=== PATIENT | female | born 1940 | race Hispanic/Latino ===

== ENCOUNTER 2020-09-12 13:04 | Inpatient (IN) | payer MEDICARE ==
[2020-09-12] MEDS ORDERED: PANTOPRAZOLE 40 MG INJ IV ONE (13:56)
[2020-09-12] MEDS ORDERED: CEFEPIME/NS 1 GM/100 ML 1 GM/100 ML BAG IV ONE (13:56)
[2020-09-12] MEDS ORDERED: SODIUM CHLORIDE 0.9% 500 ML 500 ML IV ONE (14:18)
[2020-09-12] MEDS ORDERED: LIDOCAINE (1%) 10 MG/1 ML VIAL 20 ML MDV INFILTRATI ONE (14:27)
--- NOTE | 2020-09-12 14:46 | XRay Report ---
CHEST 1 VIEW 09/12/2020 2:20 PM INDICATION / CLINICAL INFORMATION: hypotension. COMPARISON: None available. FINDINGS: SUPPORT DEVICES: None. HEART / MEDIASTINUM: No significant abnormality. LUNGS / PLEURA: No significant pulmonary or pleural abnormality. No pneumothorax. ADDITIONAL FINDINGS: No significant additional findings. IMPRESSION: 1. No acute findings. Signer Name: Shayne Viramontes MD Signed: 09/12/2020 2:42 PM Workstation Name: [email or web address]
[2020-09-12 14:48] LABS: Hematocrit 24.8 % (30.3-42.9); Hemoglobin 8.6 gm/dl (10.1-14.3); Mean Corpuscular HGB Conc 35 % (30-34); Mean Corpuscular Volume 100 fl (79-97); Platelet Count 152 K/mm3 (140-440); Red Blood Count 2.48 M/mm3 (3.65-5.03); Red Cell Distribution Width 13.3 % (13.2-15.2)
[2020-09-12 14:56] LABS: INR 1.13 (0.87-1.13)
[2020-09-12 15:02] LABS: Creatine Kinase MB 1.4 ng/mL (0.0-4.0)
[2020-09-12 15:04] LABS: Albumin 2.8 g/dL (3.9-5); BUN/Creatinine Ratio 24; Blood Urea Nitrogen 24 mg/dL (7-17); Calcium 8.1 mg/dL (8.4-10.2); Hemolysis Index 3
--- NOTE | 2020-09-12 15:13 | Emergency Department Report ---
ED General Adult HPI - General Chief complaint: Fall Stated complaint: LT HIP/WEAKNESS Time Seen by Provider: 09/12/20 13:52 Source: patient, EMS Mode of arrival: Stretcher Limitations: Physical Limitation - History of Present Illness Initial comments: This is an 80-year-old female who I am told was seen at [place] emergency department yesterday and released. This is after a fall. There is some question as to whether the patient was evaluated for left hip pain. Upon my encounter, patient is unable to give any information beyond her name. She looks pale but her vital signs are otherwise stable. Patient was questionably toxic. Thereby, a code sepsis was called. Her mental status is obviously altered. A CT of the head was also -: unknown - Related Data Allergies Allergy/AdvReac Type Severity Reaction Status Date / Time No Known Allergies Allergy Unverified 09/12/20 13:50 ED Review of Systems ROS: Stated complaint: LT HIP/WEAKNESS Other details as noted in HPI Comment: Unobtainable due to pts medical conditions ED Past Medical Hx - Past Medical History Previous Medical History?: Yes Additional medical history: alzheimers - Social History Other Social History: Patient is coming from home. ED Physical Exam - General Limitations: Altered Mental Status, Physical Limitation General appearance: alert, in no apparent distress - Head Head exam: Present: atraumatic, normocephalic - Eye Eye exam: Present: normal appearance. Absent: scleral icterus - ENT ENT exam: Present: mucous membranes moist - Neck Neck exam: Present: normal inspection. Absent: tenderness, meningismus - Respiratory Respiratory exam: Present: normal lung sounds bilaterally. Absent: respiratory distress - Cardiovascular Cardiovascular Exam: Present: regular rate, normal rhythm. Absent: systolic murmur, diastolic murmur, rubs, gallop - GI/Abdominal GI/Abdominal exam: Present: soft, normal bowel sounds. Absent: distended, tenderness, guarding, rebound, rigid - Extremities Exam Extremities exam: Present: normal inspection - Back Exam Back exam: Present: normal inspection - Neurological Exam Neurological exam: Present: CN II-XII intact. Absent: motor sensory deficit - Psychiatric Psychiatric exam: Present: normal mood, flat affect - Skin Skin exam: Present: warm, dry, intact, normal color. Absent: rash ED Course - Reevaluation(s) Reevaluation #1: Discussed the patient's history with her daughter. She is on Namenda, Depakote and a medication for "paranoia" the daughter will call in these medicines to the nurse. The patient's last UTI was diagnosed in July. She is not been on antibiotics since. She has not been hospitalized recently. She has had a assisted living (memory center). She was seen at [place] emergency department last night. There was no report of anemia. There is no report of low sodium. However, the daughter stated that her primary care doctor found her sodium to be low x2 over the last approximately 1 month. It was "not low enough" for acute treatment. Patient is found to be hyponatremic with mental decline, i.e. acute encephalopathy on chronic dementia. She is not able to sit up in bed nor take care of herself obviously. She is found to have a UTI. She is substantially anemic which is macrocytic/hyperchromic. She will be admitted to the medical service for further work-up. A CT of the abdomen and pelvis has been ordered to further stratify her anemia, pelvic pain and UTI. 09/12/20 18:07 ED Medical Decision Making - Lab Data Result diagrams: 09/12/20 14:35 09/12/20 14:21 Laboratory Results - last 24 hr 09/12/20 09/12/20 09/12/20 14:21 14:21 14:21 WBC RBC Hgb Hct MCV MCH MCHC RDW Plt Count [place] % (Auto) Add Manual Diff Total Counted Seg Neuts % (Manual) Lymphocytes % (Manual) Monocytes % (Manual) Nucleated RBC % Seg Neutrophils # Man Band Neutrophils # Lymphocytes # (Manual) Abs React Lymphs (Man) Monocytes # (Manual) Eosinophils # (Manual) Basophils # (Manual) Metamyelocytes # Myelocytes # Promyelocytes # Blast Cells # WBC Morphology Hypersegmented Neuts Hyposegmented Neuts Hypogranular Neuts Smudge Cells Toxic Granulation Toxic Vacuolation Dohle Bodies Pelger-Huet Anomaly Tracey Rods Platelet Estimate Clumped Platelets Plt Clumps, EDTA Large Platelets Giant Platelets Platelet Satelliting Plt Morphology Comment RBC Morphology Dimorphic RBCs Polychromasia Hypochromasia Poikilocytosis Anisocytosis Microcytosis Macrocytosis Spherocytes Pappenheimer Bodies Sickle Cells Target Cells Tear Drop Cells Ovalocytes Helmet Cells Blair-[place]ad Bodies Calvin Rings Nelli Cells Bite Cells Crenated Cell Elliptocytes Acanthocytes (Spur) Rouleaux Hemoglobin C Crystals Schistocytes Malaria parasites Dmitri Bodies Hem Pathologist Commnt PT 14.3 INR 1.13 VBG pH 7.350 Sodium Potassium Chloride Carbon Dioxide Anion Gap BUN Creatinine Estimated GFR BUN/Creatinine Ratio Glucose Lactic Acid 1.90 Calcium Magnesium Total Bilirubin Direct Bilirubin Indirect Bilirubin AST ALT Alkaline Phosphatase Total Creatine Kinase CK-MB (CK-2) CK-MB (CK-2) Rel Index Troponin T NT-Pro-B Natriuret Pep Total Protein Albumin Albumin/Globulin Ratio Blood Type Antibody Screen 09/12/20 09/12/20 09/12/20 14:21 14:21 14:35 WBC 8.5 RBC 2.48 L Hgb 8.6 L Hct 24.8 L MCV 100 H MCH 35 H MCHC 35 H RDW 13.3 Plt Count 152 [place] % (Auto) Mixing And Molding Machine Operator Add Manual Diff Complete Total Counted 100 Seg Neuts % (Manual) 73.0 H Lymphocytes % (Manual) 16.0 Monocytes % (Manual) 11.0 H Nucleated RBC % Not Reportable Seg Neutrophils # Man 6.2 Band Neutrophils # 0.0 Lymphocytes # (Manual) 1.4 Abs React Lymphs (Man) 0.0 Monocytes # (Manual) 0.9 H Eosinophils # (Manual) 0.0 Basophils # (Manual) 0.0 Metamyelocytes # 0.0 Myelocytes # 0.0 Promyelocytes # 0.0 Blast Cells # 0.0 WBC Morphology Not Reportable Hypersegmented Neuts Not Reportable Hyposegmented Neuts Not Reportable Hypogranular Neuts Not Reportable Smudge Cells Not Reportable Toxic Granulation Not Reportable Toxic Vacuolation Not Reportable Dohle Bodies Not Reportable Pelger-Huet Anomaly Not Reportable Tracey Rods Not Reportable Platelet Estimate Consistent w auto Clumped Platelets Not Reportable Plt Clumps, EDTA Not Reportable Large Platelets Not Reportable Giant Platelets Not Reportable Platelet Satelliting Not Reportable Plt Morphology Comment Not Reportable RBC Morphology Normal Dimorphic RBCs Not Reportable Polychromasia Not Reportable Hypochromasia Not Reportable Poikilocytosis Not Reportable Anisocytosis Not Reportable Microcytosis Not Reportable Macrocytosis Not Reportable Spherocytes Not Reportable Pappenheimer Bodies Not Reportable Sickle Cells Not Reportable Target Cells Not Reportable Tear Drop Cells Not Reportable Ovalocytes Not Reportable Helmet Cells Not Reportable Blair-[place] Bodies Not Reportable Calvin Rings Not Reportable Logan Cells Not Reportable Bite Cells Not Reportable Crenated Cell Not Reportable Elliptocytes Not Reportable Acanthocytes (Spur) Not Reportable Rouleaux Not Reportable Hemoglobin C Crystals Not Reportable Schistocytes Not Reportable Malaria parasites Not Reportable Dmitri Bodies Not Reportable Hem Pathologist Commnt No PT INR VBG pH Sodium 129 L Potassium 4.1 Chloride 95.1 L Carbon Dioxide 28 Anion Gap 10 BUN 24 H Creatinine 1.0 Estimated GFR 53 BUN/Creatinine Ratio 24 Glucose 128 H Lactic Acid Calcium 8.1 L Magnesium 2.00 Total Bilirubin 0.20 Direct Bilirubin < 0.2 Indirect Bilirubin 0.0 AST 13 ALT < 5 L Alkaline Phosphatase 56 Total Creatine Kinase 22 L CK-MB (CK-2) 1.4 CK-MB (CK-2) Rel Index 6.3 H Troponin T < 0.010 NT-Pro-B Natriuret Pep 416.2 Total Protein 4.7 L Albumin 2.8 L Albumin/Globulin Ratio 1.5 Blood Type Antibody Screen 09/12/20 14:35 WBC RBC Hgb Hct MCV MCH MCHC RDW Plt Count [place] % (Auto) Add Manual Diff Total Counted Seg Neuts % (Manual) Lymphocytes % (Manual) Monocytes % (Manual) Nucleated RBC % Seg Neutrophils # Man Band Neutrophils # Lymphocytes # (Manual) Abs React Lymphs (Man) Monocytes # (Manual) Eosinophils # (Manual) Basophils # (Manual) Metamyelocytes # Myelocytes # Promyelocytes # Blast Cells # WBC Morphology Hypersegmented Neuts Hyposegmented Neuts Hypogranular Neuts Smudge Cells Toxic Granulation Toxic Vacuolation Dohle Bodies Pelger-Huet Anomaly Tracey Rods Platelet Estimate Clumped Platelets Plt Clumps, EDTA Large Platelets Giant Platelets Platelet Satelliting Plt Morphology Comment RBC Morphology Dimorphic RBCs Polychromasia Hypochromasia Poikilocytosis Anisocytosis Microcytosis Macrocytosis Spherocytes Pappenheimer Bodies Sickle Cells Target Cells Tear Drop Cells Ovalocytes Helmet Cells Blair-[place]ad Bodies Calvin Rings Nelli Cells Bite Cells Crenated Cell Elliptocytes Acanthocytes (Spur) Rouleaux Hemoglobin C Crystals Schistocytes Malaria parasites Dmitri Bodies Hem Pathologist Commnt PT INR VBG pH Sodium Potassium Chloride Carbon Dioxide Anion Gap BUN Creatinine Estimated GFR BUN/Creatinine Ratio Glucose Lactic Acid Calcium Magnesium Total Bilirubin Direct Bilirubin Indirect Bilirubin AST ALT Alkaline Phosphatase Total Creatine Kinase CK-MB (CK-2) CK-MB (CK-2) Rel Index Troponin T NT-Pro-B Natriuret Pep Total Protein Albumin Albumin/Globulin Ratio Blood Type O POSITIVE Antibody Screen Negative Critical care attestation.: If time is entered above; I have spent that time in minutes in the direct care of this critically ill patient, excluding procedure time. ED Disposition Clinical Impression: Hyponatremia, Acute encephalopathy, Volume depletion Anemia Qualifiers: Anemia type: unspecified type Qualified Code(s): D64.9 - Anemia, unspecified Disposition: 09 OP ADMIT IP TO THIS HOSP Is pt being admited?: Yes Does the pt Need Aspirin: Yes Condition: Stable Referrals: PRIMARY CARE, [Primary Care Provider] - 3-5 Days Time of Disposition: 18:11
[2020-09-12 15:18] LABS: Total Cells Counted 100
[2020-09-12 15:19] LABS: Platelet Estimate Consistent w Auto; RBC Morphology Normal
[2020-09-12 15:21] LABS: Alanine Aminotransferase < 5 units/L (7-56); Bilirubin,Direct < 0.2 mg/dL (0-0.2)
--- NOTE | 2020-09-12 15:26 | Cat Scan Report ---
CT head without contrast HISTORY: AMS. TECHNIQUE: Axial imaging performed from the skull apex through the skull base without the use of con trast. All CT scans at this location are performed using CT dose reduction for ALARA by means of aut omated exposure control. COMPARISON: None FINDINGS: Parenchyma: No acute intracranial hemorrhage or parenchymal abnormality. Ventricles: There is mild diffuse brain atrophy with commensurate ventricular enlargement which is l ikely age appropriate. Soft tissues: Soft tissues including the orbits appear normal. Bones: No acute osseous abnormality. Sinuses: Sinuses and mastoid air cells are clear. IMPRESSION: No acute abnormality. Signer Name: Eleuterio Haynes MD Signed: 09/12/2020 3:22 PM Workstation Name: [email or web address]
[2020-09-12] MEDS ORDERED: SODIUM CHLORIDE 0.9% 1000 ML 1,000 ML IV ONE (17:00)
[2020-09-12 17:21] LABS: Bilirubin,Urine NEG (Negative); Blood,Urine NEG (Negative); Color,Urine Amber (Yellow); Mucus,Urine 1+ /HPF; Urobilinogen,Urine < 2.0 mg/dL (<2.0)
[2020-09-12 17:47] LABS: Iron 24 ug/dL (37-170); Total Iron Binding Capacity 211 mcg/dL (250-450)
--- NOTE | 2020-09-12 18:01 | XRay Report ---
. PELVIS 1 VIEW(S) INDICATION / CLINICAL INFORMATION: hip pain COMPARISON: None available. FINDINGS: BONES / JOINT(S): No acute fracture or subluxation. 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 SOFT TISSUES: No significant abnormality. ADDITIONAL FINDINGS: None. Signer Name: Martin Reina MD Signed: 09/12/2020 5:57 PM Workstation Name: [id number]
[2020-09-12] MEDS ORDERED: ASPIRIN 81 MG TAB CHEW PO ONE (18:19)
--- NOTE | 2020-09-12 18:34 | Cat Scan Report ---
CT ABDOMEN AND PELVIS WITHOUT CONTRAST HISTORY: pelvic pain, anemia. COMPARISON: None. TECHNIQUE: CT images of the abdomen and pelvis were obtained without administration of intravenous co ntrast. All CT scans at this location are performed using CT dose reduction for ALARA by means of au tomated exposure control. FINDINGS: Lungs/bones: There is a small left-sided pleural effusion and minimal bibasilar compressive atelecta sis. Degenerative changes are present in the spine and pelvis with superior endplate wedge deformity at L1 with approximately 25% height loss. No acute fracture line identified and this is most likely c hronic abnormality. Abdomen/pelvis: The liver, gallbladder, spleen, pancreas, adrenals, right kidney, and proximal GI tr act appear unremarkable. There is nonobstructive nephrolithiasis in the left kidney with largest ston e measuring 2 mm in the lower pole. There is no ureteral stone or hydronephrosis. The bladder is mostly collapsed but there is suggestion of mild circumferential wall thickening and s urrounding stranding. No pelvic free fluid. Uterus is surgically absent. There is mild colonic divert iculosis with no acute inflammatory change identified. There is a rounded masslike structure superficial to the right hip which measures approximately 15 cm in length and 12 cm AP with mild subcutaneous stranding over the right flank. IMPRESSION: 1. Urinary bladder findings as outlined above could be seen with cystitis. Correlate with urinalysis findings. 2. Incidental large hematoma over the right hip may explain anemia. No underlying fracture. Signer Name: Eleuterio Haynes MD Signed: 09/12/2020 6:29 PM Workstation Name: [id number]
[2020-09-12] MEDS: HYDROmorphone 1 MG/1 ML INJ IV PRN (22:16)
--- NOTE | 2020-09-13 00:03 | History and Physical Report ---
History of Present Illness Date of examination: 09/12/20 Date of admission: 09/12/20 17:55 Chief complaint: Altered sensorium and severe weakness for 1 day History of present illness: 80-year-old with history of dementia brought in for fall and severe weakness. Patient was apparently evaluated emergency department at [facility] and was released yesterday. Patient was evaluated for left hip pain and fracture was ruled out. As per the daughter patient has a low sodium and hence brought her here for altered sensorium and possible hyponatremia. No fever or chills. No exposure to coronavirus. Patient lives in assisted living facility. - Past Medical History Previous Medical History?: Yes Additional medical history: alzheimers past surgical history n/a - Social History Other Social History: Patient is coming from home. --Family history Htm Review of Systems ROS: Stated complaint: LT HIP/WEAKNESS Other details as noted in HPI Comment: Unobtainable due to pts medical conditions Medications and Allergies Allergies Allergy/AdvReac Type Severity Reaction Status Date / Time No Known Allergies Allergy Verified 09/13/20 00:13 Active Meds: Active Medications Hydromorphone HCl (Hydromorphone 1 Mg/1 Ml Inj) 0.5 mg IV Q3H PRN PRN Reason: Pain , Severe (7-10) Last Admin: 09/12/20 22:16 Dose: 0.5 mg Documented by: Sodium Chloride (Nacl 0.9% 1000 Ml) 1,000 mls @ 125 mls/hr IV ONCE ONE Stop: 09/13/20 00:59 Last Admin: 09/12/20 17:28 Dose: 125 mls/hr Documented by: Exam - Constitutional Vitals: Temp Pulse Resp BP Pulse Ox 99.3 F 88 17 103/45 92 09/12/20 21:09 09/12/20 22:10 09/12/20 22:46 09/12/20 22:10 09/12/20 22:10 General appearance: Present: no acute distress, well-nourished - EENT Eyes: Present: PERRL ENT: hearing intact, clear oral mucosa - Neck Neck: Present: supple, normal ROM - Respiratory Respiratory effort: normal Respiratory: bilateral: CTA - Cardiovascular Heart rate: 78 Rhythm: regular Heart Sounds: Present: S1 & S2. Absent: rub, click - Extremities Extremities: no ischemia, pulses symmetrical, No edema Peripheral Pulses: within normal limits - Abdominal General gastrointestinal: Present: soft, non-tender, non-distended, normal bowel sounds Female genitourinary: Present: normal - Integumentary Integumentary: Present: clear, warm, dry - Musculoskeletal Musculoskeletal: gait normal, strength equal bilaterally - Psychiatric Psychiatric: other (Altered sensorium) - Neurologic Neurologic: CNII-XII intact, moves all extremities, other (Altered sensorium) - Allied Health Allied health notes reviewed: nursing, case management HEART Score - HEART Score Troponin: Troponin T < 0.010 ng/mL (0.00-0.029) 09/12/20 14:21 Results - Labs CBC & Chem 7: 09/12/20 14:35 09/12/20 14:21 Labs: Laboratory Last Values WBC 8.5 K/mm3 (4.5-11.0) 09/12/20 14:35 RBC 2.48 M/mm3 (3.65-5.03) L 09/12/20 14:35 Hgb 8.6 gm/dl (10.1-14.3) L 09/12/20 14:35 Hct 24.8 % (30.3-42.9) L 09/12/20 14:35 MCV 100 fl (79-97) H 09/12/20 14:35 MCH 35 pg (28-32) H 09/12/20 14:35 MCHC 35 % (30-34) H 09/12/20 14:35 RDW 13.3 % (13.2-15.2) 09/12/20 14:35 Plt Count 152 K/mm3 (140-440) 09/12/20 14:35 [place] % (Auto) Independent Jeweler 09/12/20 14:35 Add Manual Diff Complete 09/12/20 14:35 Total Counted 100 09/12/20 14:35 Seg Neuts % (Manual) 73.0 % (40.0-70.0) H 09/12/20 14:35 Lymphocytes % (Manual) 16.0 % (13.4-35.0) 09/12/20 14:35 Monocytes % (Manual) 11.0 % (0.0-7.3) H 09/12/20 14:35 Nucleated RBC % Not Reportable 09/12/20 14:35 Seg Neutrophils # Man 6.2 K/mm3 (1.8-7.7) 09/12/20 14:35 Band Neutrophils # 0.0 K/mm3 09/12/20 14:35 Lymphocytes # (Manual) 1.4 K/mm3 (1.2-5.4) 09/12/20 14:35 Abs React Lymphs (Man) 0.0 K/mm3 09/12/20 14:35 Monocytes # (Manual) 0.9 K/mm3 (0.0-0.8) H 09/12/20 14:35 Eosinophils # (Manual) 0.0 K/mm3 (0.0-0.4) 09/12/20 14:35 Basophils # (Manual) 0.0 K/mm3 (0.0-0.1) 09/12/20 14:35 Metamyelocytes # 0.0 K/mm3 09/12/20 14:35 Myelocytes # 0.0 K/mm3 09/12/20 14:35 Promyelocytes # 0.0 K/mm3 09/12/20 14:35 Blast Cells # 0.0 K/mm3 09/12/20 14:35 WBC Morphology Not Reportable 09/12/20 14:35 Hypersegmented Neuts Not Reportable 09/12/20 14:35 Hyposegmented Neuts Not Reportable 09/12/20 14:35 Hypogranular Neuts Not Reportable 09/12/20 14:35 Smudge Cells Not Reportable 09/12/20 14:35 Toxic Granulation Not Reportable 09/12/20 14:35 Toxic Vacuolation Not Reportable 09/12/20 14:35 Dohle Bodies Not Reportable 09/12/20 14:35 Pelger-Huet Anomaly Not Reportable 09/12/20 14:35 Tracey Rods Not Reportable 09/12/20 14:35 Platelet Estimate Consistent w auto 09/12/20 14:35 Clumped Platelets Not Reportable 09/12/20 14:35 Plt Clumps, EDTA Not Reportable 09/12/20 14:35 Large Platelets Not Reportable 09/12/20 14:35 Giant Platelets Not Reportable 09/12/20 14:35 Platelet Satelliting Not Reportable 09/12/20 14:35 Plt Morphology Comment Not Reportable 09/12/20 14:35 RBC Morphology Normal 09/12/20 14:35 Dimorphic RBCs Not Reportable 09/12/20 14:35 Polychromasia Not Reportable 09/12/20 14:35 Hypochromasia Not Reportable 09/12/20 14:35 Poikilocytosis Not Reportable 09/12/20 14:35 Anisocytosis Not Reportable 09/12/20 14:35 Microcytosis Not Reportable 09/12/20 14:35 Macrocytosis Not Reportable 09/12/20 14:35 Spherocytes Not Reportable 09/12/20 14:35 Pappenheimer Bodies Not Reportable 09/12/20 14:35 Sickle Cells Not Reportable 09/12/20 14:35 Target Cells Not Reportable 09/12/20 14:35 Tear Drop Cells Not Reportable 09/12/20 14:35 Ovalocytes Not Reportable 09/12/20 14:35 Helmet Cells Not Reportable 09/12/20 14:35 [place] Bodies Not Reportable 09/12/20 14:35 [place] Rings Not Reportable 09/12/20 14:35 [place] Cells Not Reportable 09/12/20 14:35 Bite Cells Not Reportable 09/12/20 14:35 Crenated Cell Not Reportable 09/12/20 14:35 Elliptocytes Not Reportable 09/12/20 14:35 Acanthocytes (Spur) Not Reportable 09/12/20 14:35 Rouleaux Not Reportable 09/12/20 14:35 Hemoglobin C Crystals Not Reportable 09/12/20 14:35 Schistocytes Not Reportable 09/12/20 14:35 Malaria parasites Not Reportable 09/12/20 14:35 Dmitri Bodies Not Reportable 09/12/20 14:35 Hem Pathologist Commnt No 09/12/20 14:35 PT 14.3 Sec. (12.2-14.9) 09/12/20 14:21 INR 1.13 (0.87-1.13) 09/12/20 14:21 VBG pH 7.350 (7.320-7.420) 09/12/20 14:21 Sodium 129 mmol/L (137-145) L 09/12/20 14:21 Potassium 4.1 mmol/L (3.6-5.0) 09/12/20 14:21 Chloride 95.1 mmol/L (98-107) L 09/12/20 14:21 Carbon Dioxide 28 mmol/L (22-30) 09/12/20 14:21 Anion Gap 10 mmol/L 09/12/20 14:21 BUN 24 mg/dL (7-17) H 09/12/20 14:21 Creatinine 1.0 mg/dL (0.6-1.2) 09/12/20 14:21 Estimated GFR 53 ml/min 09/12/20 14:21 BUN/Creatinine Ratio 24 % 09/12/20 14:21 Glucose 128 mg/dL (65-100) H 09/12/20 14:21 Lactic Acid 1.50 mmol/L (0.7-2.0) 09/12/20 17:08 Calcium 8.1 mg/dL (8.4-10.2) L 09/12/20 14:21 Magnesium 2.00 mg/dL (1.7-2.3) 09/12/20 14:21 Iron 24 ug/dL (37-170) L 09/12/20 17:08 TIBC 211 mcg/dL (250-450) L 09/12/20 17:08 Total Bilirubin 0.20 mg/dL (0.1-1.2) 09/12/20 14:21 Direct Bilirubin < 0.2 mg/dL (0-0.2) 09/12/20 14:21 Indirect Bilirubin 0.0 mg/dL 09/12/20 14:21 AST 13 units/L (5-40) 09/12/20 14:21 ALT < 5 units/L (7-56) L 09/12/20 14:21 Alkaline Phosphatase 56 units/L (35-129) 09/12/20 14:21 Total Creatine Kinase 22 units/L (30-135) L 09/12/20 14:21 CK-MB (CK-2) 1.4 ng/mL (0.0-4.0) 09/12/20 14:21 CK-MB (CK-2) Rel Index 6.3 (0-4) H 09/12/20 14:21 Troponin T < 0.010 ng/mL (0.00-0.029) 09/12/20 14:21 NT-Pro-B Natriuret Pep 416.2 pg/mL (0-900) 09/12/20 14:21 Total Protein 4.7 g/dL (6.3-8.2) L 09/12/20 14:21 Albumin 2.8 g/dL (3.9-5) L 09/12/20 14:21 Albumin/Globulin Ratio 1.5 % 09/12/20 14:21 Vitamin B12 593.2 pg/mL (211-911) 09/12/20 17:08 Folate 19.13 ng/mL (7.3-26.0) 09/12/20 17:08 Urine Color Vickie (Yellow) 09/12/20 16:46 Urine Turbidity Cloudy (Clear) 09/12/20 16:46 Urine pH 5.0 (5.0-7.0) 09/12/20 16:46 Ur Specific [place] 1.019 (1.003-1.030) 09/12/20 16:46 Urine Protein 30 mg/dl mg/dL (Negative) 09/12/20 16:46 Urine Glucose (UA) Neg mg/dL (Negative) 09/12/20 16:46 Urine Ketones Neg mg/dL (Negative) 09/12/20 16:46 Urine Blood Neg (Negative) 09/12/20 16:46 Urine Nitrite Neg (Negative) 09/12/20 16:46 Urine Bilirubin Neg (Negative) 09/12/20 16:46 Urine Urobilinogen < 2.0 mg/dL (<2.0) 09/12/20 16:46 Ur Leukocyte Esterase Mod (Negative) 09/12/20 16:46 Urine WBC (Auto) 90.0 /HPF (0.0-6.0) H 09/12/20 16:46 Urine RBC (Auto) 4.0 /HPF (0.0-6.0) 09/12/20 16:46 U Epithel Cells (Auto) < 1.0 /HPF (0-13.0) 09/12/20 16:46 Urine Mucus 1+ /HPF 09/12/20 16:46 Blood Type O POSITIVE 09/12/20 14:35 Antibody Screen Negative 09/12/20 14:35 Short CBC 09/12/20 Range/Units 14:35 WBC 8.5 (4.5-11.0) K/mm3 Hgb 8.6 L (10.1-14.3) gm/dl Hct 24.8 L (30.3-42.9) % Plt Count 152 (140-440) K/mm3 BMP 09/12/20 14:21 Sodium 129 L Potassium 4.1 Chloride 95.1 L Carbon Dioxide 28 BUN 24 H Creatinine 1.0 Glucose 128 H Calcium 8.1 L Cardiac Enzymes 09/12/20 Range/Units 14:21 Total Creatine Kinase 22 L (30-135) units/L CK-MB (CK-2) 1.4 (0.0-4.0) ng/mL Troponin T < 0.010 (0.00-0.029) ng/mL Liver Function 09/12/20 Range/Units 14:21 Total Bilirubin 0.20 (0.1-1.2) mg/dL Direct Bilirubin < 0.2 (0-0.2) mg/dL AST 13 (5-40) units/L ALT < 5 L (7-56) units/L Alkaline Phosphatase 56 (35-129) units/L Albumin 2.8 L (3.9-5) g/dL Urine 09/12/20 Range/Units 16:46 Urine Color Vickie (Yellow) Urine pH 5.0 (5.0-7.0) Ur Specific [place] 1.019 (1.003-1.030) Urine Protein 30 mg/dl (Negative) mg/dL Urine Glucose (UA) Neg (Negative) mg/dL Microbiology: Microbiology 09/12/20 14:21 Peripheral/Venous Blood Culture - Preliminary Culture in Progress 09/12/20 14:21 Peripheral/Venous Blood Culture - Preliminary Culture in Progress - Imaging and Cardiology Imaging and Cardiology: Head CT No acute abnormality Chest x-ray No acute findings Abdominal CAT scan Urinary bladder findings consistent with cystitis Incidental large hematoma over the right rib may explain anemia no underlying fracture Assessment and Plan Advance Directives: Yes (Full code) VTE prophylaxis?: Chemical Plan of care discussed with patient/family: Yes - Patient Problems (1) Acute encephalopathy Current Visit: Yes Status: Acute Plan to address problem: Multifactorial including low sodium urinary tract infection and underlying dementia (2) Hyponatremia Current Visit: Yes Status: Acute Plan to address problem: IV normal saline for now (3) Hematoma of right hip Current Visit: Yes Status: Acute Qualifiers: Encounter type: initial encounter Qualified Code(s): S70.01XA - Contusion of right hip, initial encounter Plan to address problem: Ortho consult requested (4) Anemia Current Visit: Yes Status: Acute Qualifiers: Anemia type: unspecified type Qualified Code(s): D64.9 - Anemia, un specified Plan to address problem: Anemia possibly secondary to hematoma and possible iron deficiency anemia Anemia work-up (5) Urinary tract infection Current Visit: Yes Status: Acute Qualifiers: Urinary tract infection type: acute cystitis Plan to address problem: Initiated on IV Rocephin (6) Malnutrition Current Visit: Yes Status: Chronic Qualifiers: Protein-calorie malnutrition severity: mild Plan to address problem: Initiated on dietary supplements (7) Hypocalcemia Current Visit: Yes Status: Acute Plan to address problem: On Caltrate (8) DVT prophylaxis Current Visit: Yes Status: Acute Plan to address problem: On heparin and GI prophylaxis
[2020-09-13] MEDS ORDERED: ONDANSETRON 4 MG/2 ML INJ IV PRN (00:05)
[2020-09-13] MEDS ORDERED: METOCLOPRAMIDE 10 MG/2 ML INJ IV PRN ×2 (00:05→00:17)
[2020-09-13] MEDS ORDERED: FAMOTIDINE 20 MG/2 ML INJ IV SCH (01:00)
[2020-09-13] MEDS: FAMOTIDINE 20 MG/2 ML INJ IV SCH ×3 (01:59→21:06)
[2020-09-13] MEDS: SODIUM CHLORIDE 0.9% 1000 ML 1,000 ML IV SCH ×2 (02:08→13:43)
[2020-09-13 07:50] LABS: Hematocrit 20.4 % (30.3-42.9); Hemoglobin 6.9 gm/dl (10.1-14.3); Mean Corpuscular HGB Conc 34 % (30-34); Mean Corpuscular Volume 101 fl (79-97); Platelet Count 119 K/mm3 (140-440); Red Blood Count 2.01 M/mm3 (3.65-5.03); Red Cell Distribution Width 13.4 % (13.2-15.2)
[2020-09-13 08:16] LABS: Albumin 2.3 g/dL (3.9-5); Blood Urea Nitrogen 19 mg/dL (7-17); Calcium 7.5 mg/dL (8.4-10.2); Hemolysis Index 18
[2020-09-13 08:21] LABS: Alanine Aminotransferase < 5 units/L (7-56); BUN/Creatinine Ratio 32
[2020-09-13 08:46] LABS: Band Neutrophils # (Manual) 0.1 K/mm3; Total Cells Counted 100
[2020-09-13 08:47] LABS: Platelet Estimate Consistent w Auto; RBC Morphology Normal
[2020-09-13] MEDS: CALCIUM CARB/VIT D3/MINERALS 600 MG/800 UNITS TAB PO SCH ×2 (09:34→21:06)
[2020-09-13] MEDS: cefTRIAXone/NS 2 GM/100 ML 2 GM/100 ML BAG IV SCH (09:34)
--- NOTE | 2020-09-13 13:23 | Progress Note ---
Assessment and Plan Assessment and plan: 80yo with acute encephalopathy 2/2 dehydration/uti. - Patient Problems (1) Acute encephalopathy Current Visit: Yes Status: Acute Plan to address problem: Multifactorial including low sodium urinary tract infection and underlying dementia improving with fluids (2) Hyponatremia Current Visit: Yes Status: Acute Plan to address problem: IV normal saline for now resolving with fluids (3) Hematoma of right hip Current Visit: Yes Status: Acute Qualifiers: Encounter type: initial encounter Qualified Code(s): S70.01XA - Contusion of right hip, initial encounter Plan to address problem: Ortho consult requested CT of abd/pelvis reviewed (4) Anemia Current Visit: Yes Status: Acute Qualifiers: Anemia type: unspecified type Qualified Code(s): D64.9 - Anemia, unspecified Plan to address problem: Anemia possibly secondary to hematoma Iron deficiency (5) Urinary tract infection Current Visit: Yes Status: Acute Qualifiers: Urinary tract infection type: acute cystitis Plan to address problem: continue IV Rocephin (6) Malnutrition Current Visit: Yes Status: Chronic Qualifiers: Protein-calorie malnutrition severity: mild Plan to address problem: Initiated on dietary supplements (7) Hypocalcemia Current Visit: Yes Status: Acute Plan to address problem: On Caltrate (8) DVT prophylaxis Current Visit: Yes Status: Acute Plan to address problem: On heparin and GI prophylaxis Disposition: continue fluids, PT ordered, may need SNF History Interval history: 5/7 pt seen, states she's improved, continues to have pain in right hip Hospitalist Physical - Physical exam Narrative exam: General appearance no acute distress, well-nourished EENT: PERRL, EOM intact, hearing intact, clear oral mucosa, dentition normal Neck: Present: supple, normal ROM Respiratory: bilateral: CTA, negative: rales, rhonchi, wheezing Cardiovascular: Regular rate/rhythm, Normal S1 & S2. No gallop, rub Extremities: firm right hip with pain to palpation, no ischemia, No edema, normal temperature, normal color Abdominal: soft, non-tender, non-distended, normal bowel sounds Integumentary: Present: clear, warm, dry Psychiatric: appropriate mood/affect, intact judgment & insight Neurologic: CNII-XII intact, mildly confused - Constitutional Vitals: Temp Pulse Resp BP Pulse Ox 97.8 F 82 17 117/38 96 09/13/20 12:41 09/13/20 12:41 09/13/20 12:55 09/13/20 12:41 09/13/20 12:55 General appearance: Present: no acute distress, well-nourished HEART Score - HEART Score Troponin: Troponin T < 0.010 ng/mL (0.00-0.029) 09/12/20 14:21 Results - Labs CBC & Chem 7: 09/13/20 07:12 09/13/20 07:12 Labs: Laboratory Last Values WBC 5.7 K/mm3 (4.5-11.0) 09/13/20 07:12 RBC 2.01 M/mm3 (3.65-5.03) L 09/13/20 07:12 Hgb 6.9 gm/dl (10.1-14.3) L 09/13/20 07:12 Hct 20.4 % (30.3-42.9) L 09/13/20 07:12 MCV 101 fl (79-97) H 09/13/20 07:12 MCH 34 pg (28-32) H 09/13/20 07:12 MCHC 34 % (30-34) 09/13/20 07:12 RDW 13.4 % (13.2-15.2) 09/13/20 07:12 Plt Count 119 K/mm3 (140-440) L 09/13/20 07:12 [place] % (Auto) Mobile Heavy Equipment Operator 09/13/20 07:12 Add Manual Diff Complete 09/13/20 07:12 Total Counted 100 09/13/20 07:12 Seg Neuts % (Manual) 61.0 % (40.0-70.0) 09/13/20 07:12 Band Neutrophils % 1.0 % 09/13/20 07:12 Lymphocytes % (Manual) 27.0 % (13.4-35.0) 09/13/20 07:12 Monocytes % (Manual) 11.0 % (0.0-7.3) H 09/13/20 07:12 Nucleated RBC % Not Reportable 09/13/20 07:12 Seg Neutrophils # Man 3.5 K/mm3 (1.8-7.7) 09/13/20 07:12 Band Neutrophils # 0.1 K/mm3 09/13/20 07:12 Lymphocytes # (Manual) 1.5 K/mm3 (1.2-5.4) 09/13/20 07:12 Abs React Lymphs (Man) 0.0 K/mm3 09/13/20 07:12 Monocytes # (Manual) 0.6 K/mm3 (0.0-0.8) 09/13/20 07:12 Eosinophils # (Manual) 0.0 K/mm3 (0.0-0.4) 09/13/20 07:12 Basophils # (Manual) 0.0 K/mm3 (0.0-0.1) 09/13/20 07:12 Metamyelocytes # 0.0 K/mm3 09/13/20 07:12 Myelocytes # 0.0 K/mm3 09/13/20 07:12 Promyelocytes # 0.0 K/mm3 09/13/20 07:12 Blast Cells # 0.0 K/mm3 09/13/20 07:12 WBC Morphology Not Reportable 09/13/20 07:12 Hypersegmented Neuts Not Reportable 09/13/20 07:12 Hyposegmented Neuts Not Reportable 09/13/20 07:12 Hypogranular Neuts Not Reportable 09/13/20 07:12 Smudge Cells Not Reportable 09/13/20 07:12 Toxic Granulation Not Reportable 09/13/20 07:12 Toxic Vacuolation Not Reportable 09/13/20 07:12 Dohle Bodies Not Reportable 09/13/20 07:12 Pelger-Huet Anomaly Not Reportable 09/13/20 07:12 Tracey Rods Not Reportable 09/13/20 07:12 Platelet Estimate Consistent w auto 09/13/20 07:12 Clumped Platelets Not Reportable 09/13/20 07:12 Plt Clumps, EDTA Not Reportable 09/13/20 07:12 Large Platelets Not Reportable 09/13/20 07:12 Giant Platelets Not Reportable 09/13/20 07:12 Platelet Satelliting Not Reportable 09/13/20 07:12 Plt Morphology Comment Not Reportable 09/13/20 07:12 RBC Morphology Normal 09/13/20 07:12 Dimorphic RBCs Not Reportable 09/13/20 07:12 Polychromasia Not Reportable 09/13/20 07:12 Hypochromasia Not Reportable 09/13/20 07:12 Poikilocytosis Not Reportable 09/13/20 07:12 Anisocytosis Not Reportable 09/13/20 07:12 Microcytosis Not Reportable 09/13/20 07:12 Macrocytosis Not Reportable 09/13/20 07:12 Spherocytes Not Reportable 09/13/20 07:12 Pappenheimer Bodies Not Reportable 09/13/20 07:12 Sickle Cells Not Reportable 09/13/20 07:12 Target Cells Not Reportable 09/13/20 07:12 Tear Drop Cells Not Reportable 09/13/20 07:12 Ovalocytes Not Reportable 09/13/20 07:12 Helmet Cells Not Reportable 09/13/20 07:12 [place] Bodies Not Reportable 09/13/20 07:12 [place] Rings Not Reportable 09/13/20 07:12 [place] Cells Not Reportable 09/13/20 07:12 Bite Cells Not Reportable 09/13/20 07:12 Crenated Cell Not Reportable 09/13/20 07:12 Elliptocytes Not Reportable 09/13/20 07:12 Acanthocytes (Spur) Not Reportable 09/13/20 07:12 Rouleaux Not Reportable 09/13/20 07:12 Hemoglobin C Crystals Not Reportable 09/13/20 07:12 Schistocytes Not Reportable 09/13/20 07:12 Malaria parasites Not Reportable 09/13/20 07:12 Dmitri Bodies Not Reportable 09/13/20 07:12 Hem Pathologist Commnt No 09/13/20 07:12 PT 14.3 Sec. (12.2-14.9) 09/12/20 14:21 INR 1.13 (0.87-1.13) 09/12/20 14:21 VBG pH 7.350 (7.320-7.420) 09/12/20 14:21 Sodium 136 mmol/L (137-145) L D 09/13/20 07:12 Potassium 4.4 mmol/L (3.6-5.0) 09/13/20 07:12 Chloride 104.3 mmol/L (98-107) 09/13/20 07:12 Carbon Dioxide 28 mmol/L (22-30) 09/13/20 07:12 Anion Gap 8 mmol/L 09/13/20 07:12 BUN 19 mg/dL (7-17) H 09/13/20 07:12 Creatinine 0.6 mg/dL (0.6-1.2) 09/13/20 07:12 Estimated GFR > 60 ml/min 09/13/20 07:12 BUN/Creatinine Ratio 32 % 09/13/20 07:12 Glucose 84 mg/dL (65-100) 09/13/20 07:12 Hemoglobin A1c 5.8 % (4-6) 09/13/20 07:12 Lactic Acid 1.50 mmol/L (0.7-2.0) 09/12/20 17:08 Calcium 7.5 mg/dL (8.4-10.2) L 09/13/20 07:12 Magnesium 2.00 mg/dL (1.7-2.3) 09/12/20 14:21 Iron 24 ug/dL (37-170) L 09/12/20 17:08 TIBC 211 mcg/dL (250-450) L 09/12/20 17:08 Total Bilirubin 0.20 mg/dL (0.1-1.2) 09/13/20 07:12 Direct Bilirubin < 0.2 mg/dL (0-0.2) 09/12/20 14:21 Indirect Bilirubin 0.0 mg/dL 09/12/20 14:21 AST 15 units/L (5-40) 09/13/20 07:12 ALT < 5 units/L (7-56) L 09/13/20 07:12 Alkaline Phosphatase 40 units/L (35-129) 09/13/20 07:12 Total Creatine Kinase 22 units/L (30-135) L 09/12/20 14:21 CK-MB (CK-2) 1.4 ng/mL (0.0-4.0) 09/12/20 14:21 CK-MB (CK-2) Rel Index 6.3 (0-4) H 09/12/20 14:21 Troponin T < 0.010 ng/mL (0.00-0.029) 09/12/20 14:21 NT-Pro-B Natriuret Pep 416.2 pg/mL (0-900) 09/12/20 14:21 Total Protein 4.0 g/dL (6.3-8.2) L 09/13/20 07:12 Albumin 2.3 g/dL (3.9-5) L 09/13/20 07:12 Albumin/Globulin Ratio 1.4 % 09/13/20 07:12 Vitamin B12 593.2 pg/mL (211-911) 09/12/20 17:08 Folate 19.13 ng/mL (7.3-26.0) 09/12/20 17:08 Urine Color Vickie (Yellow) 09/12/20 16:46 Urine Turbidity Cloudy (Clear) 09/12/20 16:46 Urine pH 5.0 (5.0-7.0) 09/12/20 16:46 Ur Specific [place] 1.019 (1.003-1.030) 09/12/20 16:46 Urine Protein 30 mg/dl mg/dL (Negative) 09/12/20 16:46 Urine Glucose (UA) Neg mg/dL (Negative) 09/12/20 16:46 Urine Ketones Neg mg/dL (Negative) 09/12/20 16:46 Urine Blood Neg (Negative) 09/12/20 16:46 Urine Nitrite Neg (Negative) 09/12/20 16:46 Urine Bilirubin Neg (Negative) 09/12/20 16:46 Urine Urobilinogen < 2.0 mg/dL (<2.0) 09/12/20 16:46 Ur Leukocyte Esterase Mod (Negative) 09/12/20 16:46 Urine WBC (Auto) 90.0 /HPF (0.0-6.0) H 09/12/20 16:46 Urine RBC (Auto) 4.0 /HPF (0.0-6.0) 09/12/20 16:46 U Epithel Cells (Auto) < 1.0 /HPF (0-13.0) 09/12/20 16:46 Urine Mucus 1+ /HPF 09/12/20 16:46 Blood Type O POSITIVE 09/12/20 14:35 Antibody Screen Negative 09/12/20 14:35 Microbiology: Microbiology 09/12/20 16:46 Urine,Catheterized - Straight Catheter Urine Culture - Preliminary NO GROWTH AFTER 24 HOURS 09/12/20 14:21 Peripheral/Venous Blood Culture - Preliminary Culture in Progress 09/12/20 14:21 Peripheral/Venous Blood Culture - Preliminary Culture in Progress [place]/IV: Voiding Method Diaper Active Medications - Current Medications Current Medications: Generic Name Dose Route Start Last Admin Trade Name Freq PRN Reason Stop Dose Admin Acetaminophen 650 mg 09/13/20 00:05 Acetaminophen 325 Mg Tab PO Q4H PRN Pain MILD(1-3)/Fever >100.5/IGNACIO Famotidine 10 mg 09/13/20 01:00 09/13/20 09:34 Famotidine 20 Mg/2 Ml Inj IV 10 mg BID TRISH Administration Hydromorphone HCl 0.5 mg 09/12/20 21:29 09/12/20 22:16 Hydromorphone 1 Mg/1 Ml Inj IV 0.5 mg Q3H PRN Administration Pain , Severe (7-10) Sodium Chloride 1,000 mls @ 125 mls/hr 09/13/20 00:15 09/13/20 02:08 Nacl 0.9% 1000 Ml IV 125 mls/hr DIRECT TRISH Administration Ceftriaxone Sodium 2 gm in 100 mls @ 200 mls/hr 09/13/20 10:00 09/13/20 09:34 Rocephin/Ns 2 Gm/100 Ml IV 200 mls/hr Q24HR TRISH Administration Protocol Metoclopramide HCl 5 mg 09/13/20 00:17 Metoclopramide 10 Mg/2 Ml Inj IV Q6H PRN Nausea And Vomiting Multivitamins/Minerals 1 each 09/13/20 10:00 09/13/20 09:34 Calcium Carb/Vit D3/Minerals 600 Mg/800 Units Tab PO 1 each BID TRISH Administration Ondansetron HCl 4 mg 09/13/20 00:05 Ondansetron 4 Mg/2 Ml Inj IV Q8H PRN Nausea And Vomiting Oxycodone/Acetaminophen 1 tab 09/13/20 00:05 Oxycodone /Acetaminophen 5-325mg Tab PO Q6H PRN Pain, Moderate (4-6) Sodium Chloride 10 ml 09/13/20 10:00 09/13/20 09:34 Sodium Chloride 0.9% 10 Ml Flush Syringe IV 10 ml BID TRISH Administration Sodium Chloride 10 ml 09/13/20 00:05 Sodium Chloride 0.9% 10 Ml Flush Syringe IV PRN PRN LINE FLUSH Nutrition/Malnutrition Assess - Dietary Evaluation Nutrition/Malnutrition Findings: Nutrition Notes Start: 09/13/20 11:47 Freq: Status: Active Protocol: Document 09/13/20 11:47 (Rec: 09/13/20 11:53 [id number]) Nutrition Notes Need for Assessment generated from: MD Order,Low BMI Initial or Follow up Assessment Other Pertinent Diagnosis UTI, anemia, acute encephalopathy Current Diet Cardiac Labs/Tests Na 136 BUN 19 Ca 7.5 Pertinent Medications MVI NS at 125 ml/hr Height 5 ft 3 in Weight 63.2 kg [place] Body Weight (kg) 52.27 BMI 24.7 Weight Status Appropriate Subjective/Other Information MD order for ONS. Screen for low BMI. Pt did not appear 42kg and new wt obtained. Pt has no physical signs of malnutiriton. 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 Pt did not eat breakfast because she was sleeping. She drank 100% of ONS at time of visit which she enjoyed and would like daily. Burn Absent Trauma Absent GI Symptoms None Minimum of two criteria No physical signs of malnutrition #1 Nutrition Diagnosis No nutrition diagnosis at this time Is patient on ventilator? No Is Patient Ambulatory and/or Out of Bed No REE-([facility]-confined to bed) 1292.268 Calculation Used for Recommendations [facility] Additional Notes Protein: (1-1.2g/kg) 63-76g Fluid: 1ml/kcal or per MD Nutrition Intervention Change Diet Order: Continue Add Supplement/Snack (indicate name/kcal Ensure Enlive BID /protein ) Provides kCal: 700 Provides Protein (gm) 40 Goal #1 Meet at least 75% of protein and energy needs via PO and ONS intakes Anticipated Discharge Needs: Regular Follow-Up By: 09/16/20 Additional Comments FU for stable intakes
[2020-09-14] MEDS: SODIUM CHLORIDE 0.9% 1000 ML 1,000 ML IV SCH (01:36)
[2020-09-14 06:48] LABS: Hemoglobin 6.6 gm/dl (10.1-14.3); Mean Corpuscular HGB Conc 34 % (30-34); Mean Corpuscular Volume 101 fl (79-97); Platelet Count 129 K/mm3 (140-440); Red Cell Distribution Width 13.3 % (13.2-15.2)
[2020-09-14 06:50] LABS: Hematocrit 20.5 % (30.3-42.9)
[2020-09-14 06:51] LABS: Basophils % (Auto) 0.1 % (0.0-1.8); Eosinophils % (Auto) 0.6 % (0.0-4.3); Lymphocytes # (Auto) 1.1 K/mm3 (1.2-5.4); Monocytes % (Auto) 17.8 % (0.0-7.3)
[2020-09-14 07:06] LABS: Blood Urea Nitrogen 13 mg/dL (7-17); Calcium 7.8 mg/dL (8.4-10.2); Hemolysis Index 8
[2020-09-14 07:09] LABS: BUN/Creatinine Ratio 26
[2020-09-14] MEDS ORDERED: SODIUM CHLORIDE 0.9% 500 ML 500 ML IV SCH (08:00)
[2020-09-14] MEDS: CALCIUM CARB/VIT D3/MINERALS 600 MG/800 UNITS TAB PO SCH ×2 (09:43→21:37)
[2020-09-14] MEDS: FAMOTIDINE 20 MG/2 ML INJ IV SCH ×2 (09:43→21:37)
[2020-09-14] MEDS: cefTRIAXone/NS 2 GM/100 ML 2 GM/100 ML BAG IV SCH (09:45)
--- NOTE | 2020-09-14 13:08 | Progress Note ---
Assessment and Plan Assessment and plan: 80yo with acute encephalopathy 2/2 dehydration/uti. - Patient Problems (1) Acute encephalopathy Current Visit: Yes Status: Acute Plan to address problem: Multifactorial including low sodium urinary tract infection and underlying dementia improving with fluids (2) Hyponatremia Current Visit: Yes Status: Acute Plan to address problem: IV normal saline for now resolving with fluids (3) Hematoma of right hip Current Visit: Yes Status: Acute Qualifiers: Encounter type: initial encounter Qualified Code(s): S70.01XA - Contusion of right hip, initial encounter Plan to address problem: Ortho consult requested CT of abd/pelvis reviewed Hematoma enlarging, if it continues to enlarge, repeat CT scan (4) Anemia secondary to blood loss/hematoma Current Visit: Yes Status: Acute Qualifiers: Anemia type: unspecified type Qualified Code(s): D64.9 - Anemia, unspecified Plan to address problem: Anemia possibly secondary to hematoma Iron deficiency Transfuse patient x1 (5) Urinary tract infection Current Visit: Yes Status: Acute Qualifiers: Urinary tract infection type: acute cystitis Plan to address problem: continue IV Rocephin (6) Malnutrition Current Visit: Yes Status: Chronic Qualifiers: Protein-calorie malnutrition severity: mild Plan to address problem: Initiated on dietary supplements (7) Hypocalcemia Current Visit: Yes Status: Acute Plan to address problem: On Caltrate (8) DVT prophylaxis Current Visit: Yes Status: Acute Plan to address problem: On heparin and GI prophylaxis Disposition: continue fluids, PT ordered. Transfuse patient, spoke with family, patient will most likely need rehab and is willing for the patient to go to SNF. History Interval history: 09/13 pt seen, states she's improved, continues to have pain in right hip 09/14/2020: Patient seen, continues to have pain in her right hip. Hematoma has enlarged. However patient is less confused today. Seems to be at baseline. Hospitalist Physical - Physical exam Narrative exam: General appearance no acute distress, well-nourished EENT: PERRL, EOM intact, hearing intact, clear oral mucosa, dentition normal Neck: Present: supple, normal ROM Respiratory: bilateral: CTA, negative: rales, rhonchi, wheezing Cardiovascular: Regular rate/rhythm, Normal S1 & S2. No gallop, rub Extremities: firm right hip with pain to palpation, hematoma noted, tender to t ouch Abdominal: soft, non-tender, non-distended, normal bowel sounds Integumentary: Present: clear, warm, dry Neurologic: CNII-XII intact, mildly confused - Constitutional Vitals: Temp Pulse Resp BP Pulse Ox 98.7 F 91 H 17 127/59 92 09/14/20 12:50 09/14/20 12:50 09/14/20 12:50 09/14/20 12:50 09/14/20 12:50 General appearance: Present: no acute distress, well-nourished HEART Score - HEART Score Troponin: Troponin T < 0.010 ng/mL (0.00-0.029) 09/12/20 14:21 Results - Labs CBC & Chem 7: 09/14/20 06:25 09/14/20 06:25 Labs: Laboratory Last Values WBC 5.8 K/mm3 (4.5-11.0) 09/14/20 06:25 RBC 1.90 M/mm3 (3.65-5.03) L 09/14/20 06:25 Hgb 6.6 gm/dl (10.1-14.3) L 09/14/20 06:25 Hct 20.5 % (30.3-42.9) L 09/14/20 06:25 MCV 101 fl (79-97) H 09/14/20 06:25 MCH 35 pg (28-32) H 09/14/20 06:25 MCHC 34 % (30-34) 09/14/20 06:25 RDW 13.3 % (13.2-15.2) 09/14/20 06:25 Plt Count 129 K/mm3 (140-440) L 09/14/20 06:25 Lymph % (Auto) 19.0 % (13.4-35.0) 09/14/20 06:25 Cochran % (Auto) 17.8 % (0.0-7.3) H 09/14/20 06:25 Eos % (Auto) 0.6 % (0.0-4.3) 09/14/20 06:25 Baso % (Auto) 0.1 % (0.0-1.8) 09/14/20 06:25 Lymph # (Auto) 1.1 K/mm3 (1.2-5.4) L 09/14/20 06:25 Cochran # (Auto) 1.0 K/mm3 (0.0-0.8) H 09/14/20 06:25 Eos # (Auto) 0.0 K/mm3 (0.0-0.4) 09/14/20 06:25 Baso # (Auto) 0.0 K/mm3 (0.0-0.1) 09/14/20 06:25 Add Manual Diff Complete 09/13/20 07:12 Total Counted 100 09/13/20 07:12 Seg Neutrophils % 62.5 % (40.0-70.0) 09/14/20 06:25 Seg Neuts % (Manual) 61.0 % (40.0-70.0) 09/13/20 07:12 Band Neutrophils % 1.0 % 09/13/20 07:12 Lymphocytes % (Manual) 27.0 % (13.4-35.0) 09/13/20 07:12 Monocytes % (Manual) 11.0 % (0.0-7.3) H 09/13/20 07:12 Nucleated RBC % Not Reportable 09/13/20 07:12 Seg Neutrophils # 3.6 K/mm3 (1.8-7.7) 09/14/20 06:25 Seg Neutrophils # Man 3.5 K/mm3 (1.8-7.7) 09/13/20 07:12 Band Neutrophils # 0.1 K/mm3 09/13/20 07:12 Lymphocytes # (Manual) 1.5 K/mm3 (1.2-5.4) 09/13/20 07:12 Abs React Lymphs (Man) 0.0 K/mm3 09/13/20 07:12 Monocytes # (Manual) 0.6 K/mm3 (0.0-0.8) 09/13/20 07:12 Eosinophils # (Manual) 0.0 K/mm3 (0.0-0.4) 09/13/20 07:12 Basophils # (Manual) 0.0 K/mm3 (0.0-0.1) 09/13/20 07:12 Metamyelocytes # 0.0 K/mm3 09/13/20 07:12 Myelocytes # 0.0 K/mm3 09/13/20 07:12 Promyelocytes # 0.0 K/mm3 09/13/20 07:12 Blast Cells # 0.0 K/mm3 09/13/20 07:12 WBC Morphology Not Reportable 09/13/20 07:12 Hypersegmented Neuts Not Reportable 09/13/20 07:12 Hyposegmented Neuts Not Reportable 09/13/20 07:12 Hypogranular Neuts Not Reportable 09/13/20 07:12 Smudge Cells Not Reportable 09/13/20 07:12 Toxic Granulation Not Reportable 09/13/20 07:12 Toxic Vacuolation Not Reportable 09/13/20 07:12 Dohle Bodies Not Reportable 09/13/20 07:12 Pelger-Huet Anomaly Not Reportable 09/13/20 07:12 Tracey Rods Not Reportable 09/13/20 07:12 Platelet Estimate Consistent w auto 09/13/20 07:12 Clumped Platelets Not Reportable 09/13/20 07:12 Plt Clumps, EDTA Not Reportable 09/13/20 07:12 Large Platelets Not Reportable 09/13/20 07:12 Giant Platelets Not Reportable 09/13/20 07:12 Platelet Satelliting Not Reportable 09/13/20 07:12 Plt Morphology Comment Not Reportable 09/13/20 07:12 RBC Morphology Normal 09/13/20 07:12 Dimorphic RBCs Not Reportable 09/13/20 07:12 Polychromasia Not Reportable 09/13/20 07:12 Hypochromasia Not Reportable 09/13/20 07:12 Poikilocytosis Not Reportable 09/13/20 07:12 Anisocytosis Not Reportable 09/13/20 07:12 Microcytosis Not Reportable 09/13/20 07:12 Macrocytosis Not Reportable 09/13/20 07:12 Spherocytes Not Reportable 09/13/20 07:12 Pappenheimer Bodies Not Reportable 09/13/20 07:12 Sickle Cells Not Reportable 09/13/20 07:12 Target Cells Not Reportable 09/13/20 07:12 Tear Drop Cells Not Reportable 09/13/20 07:12 Ovalocytes Not Reportable 09/13/20 07:12 Helmet Cells Not Reportable 09/13/20 07:12 [place] Bodies Not Reportable 09/13/20 07:12 Hollenberg Rings Not Reportable 09/13/20 07:12 Gum [place] Cells Not Reportable 09/13/20 07:12 Bite Cells Not Reportable 09/13/20 07:12 Crenated Cell Not Reportable 09/13/20 07:12 Elliptocytes Not Reportable 09/13/20 07:12 Acanthocytes (Spur) Not Reportable 09/13/20 07:12 Rouleaux Not Reportable 09/13/20 07:12 Hemoglobin C Crystals Not Reportable 09/13/20 07:12 Schistocytes Not Reportable 09/13/20 07:12 Malaria parasites Not Reportable 09/13/20 07:12 Dmitri Bodies Not Reportable 09/13/20 07:12 Hem Pathologist Commnt No 09/13/20 07:12 PT 14.3 Sec. (12.2-14.9) 09/12/20 14:21 INR 1.13 (0.87-1.13) 09/12/20 14:21 VBG pH 7.350 (7.320-7.420) 09/12/20 14:21 Sodium 139 mmol/L (137-145) 09/14/20 06:25 Potassium 3.9 mmol/L (3.6-5.0) 09/14/20 06:25 Chloride 103.6 mmol/L (98-107) 09/14/20 06:25 Carbon Dioxide 28 mmol/L (22-30) 09/14/20 06:25 Anion Gap 11 mmol/L 09/14/20 06:25 BUN 13 mg/dL (7-17) 09/14/20 06:25 Creatinine 0.5 mg/dL (0.6-1.2) L 09/14/20 06:25 Estimated GFR > 60 ml/min 09/14/20 06:25 BUN/Creatinine Ratio 26 % 09/14/20 06:25 Glucose 111 mg/dL (65-100) H 09/14/20 06:25 Hemoglobin A1c 5.8 % (4-6) 09/13/20 07:12 Lactic Acid 1.50 mmol/L (0.7-2.0) 09/12/20 17:08 Calcium 7.8 mg/dL (8.4-10.2) L 09/14/20 06:25 Magnesium 2.00 mg/dL (1.7-2.3) 09/12/20 14:21 Iron 24 ug/dL (37-170) L 09/12/20 17:08 TIBC 211 mcg/dL (250-450) L 09/12/20 17:08 Total Bilirubin 0.20 mg/dL (0.1-1.2) 09/13/20 07:12 Direct Bilirubin < 0.2 mg/dL (0-0.2) 09/12/20 14:21 Indirect Bilirubin 0.0 mg/dL 09/12/20 14:21 AST 15 units/L (5-40) 09/13/20 07:12 ALT < 5 units/L (7-56) L 09/13/20 07:12 Alkaline Phosphatase 40 units/L (35-129) 09/13/20 07:12 Total Creatine Kinase 22 units/L (30-135) L 09/12/20 14:21 CK-MB (CK-2) 1.4 ng/mL (0.0-4.0) 09/12/20 14:21 CK-MB (CK-2) Rel Index 6.3 (0-4) H 09/12/20 14:21 Troponin T < 0.010 ng/mL (0.00-0.029) 09/12/20 14:21 NT-Pro-B Natriuret Pep 416.2 pg/mL (0-900) 09/12/20 14:21 Total Protein 4.0 g/dL (6.3-8.2) L 09/13/20 07:12 Albumin 2.3 g/dL (3.9-5) L 09/13/20 07:12 Albumin/Globulin Ratio 1.4 % 09/13/20 07:12 Vitamin B12 593.2 pg/mL (211-911) 09/12/20 17:08 Folate 19.13 ng/mL (7.3-26.0) 09/12/20 17:08 Urine Color Vickie (Yellow) 09/12/20 16:46 Urine Turbidity Cloudy (Clear) 09/12/20 16:46 Urine pH 5.0 (5.0-7.0) 09/12/20 16:46 Ur Specific [place] 1.019 (1.003-1.030) 09/12/20 16:46 Urine Protein 30 mg/dl mg/dL (Negative) 09/12/20 16:46 Urine Glucose (UA) Neg mg/dL (Negative) 09/12/20 16:46 Urine Ketones Neg mg/dL (Negative) 09/12/20 16:46 Urine Blood Neg (Negative) 09/12/20 16:46 Urine Nitrite Neg (Negative) 09/12/20 16:46 Urine Bilirubin Neg (Negative) 09/12/20 16:46 Urine Urobilinogen < 2.0 mg/dL (<2.0) 09/12/20 16:46 Ur Leukocyte Esterase Mod (Negative) 09/12/20 16:46 Urine WBC (Auto) 90.0 /HPF (0.0-6.0) H 09/12/20 16:46 Urine RBC (Auto) 4.0 /HPF (0.0-6.0) 09/12/20 16:46 U Epithel Cells (Auto) < 1.0 /HPF (0-13.0) 09/12/20 16:46 Urine Mucus 1+ /HPF 09/12/20 16:46 Blood Type O POSITIVE 09/12/20 14:35 Antibody Screen Negative 09/12/20 14:35 Crossmatch See Detail 09/12/20 14:35 Microbiology: Microbiology 09/12/20 16:46 Urine,Catheterized - Straight Catheter Urine Culture - Final NO GROWTH AFTER 48 HOURS 09/12/20 14:21 Peripheral/Venous Blood Culture - Preliminary NO GROWTH AFTER 24 HOURS 09/12/20 14:21 Peripheral/Venous Blood Culture - Preliminary NO GROWTH AFTER 24 HOURS Merritt/IV: Voiding Method External Female Catheter Active Medications - Current Medications Current Medications: Generic Name Dose Route Start Last Admin Trade Name Freq PRN Reason Stop Dose Admin Acetaminophen 650 mg 09/13/20 00:05 Acetaminophen 325 Mg Tab PO Q4H PRN Pain MILD(1-3)/Fever >100.5/IGNACIO Divalproex Sodium 1,500 mg 09/15/20 21:[address] 500 Mg Tab PO QDAY@2100 [facility] Escitalopram Oxalate 10 mg 09/14/20 11:00 Escitalopram 10 Mg Tab PO DAILY TRISH Famotidine 10 mg 09/13/20 01:00 09/14/20 09:43 Famotidine 20 Mg/2 Ml Inj IV 10 mg BID TRISH Administration Hydromorphone HCl 0.5 mg 09/12/20 21:29 09/12/20 22:16 Hydromorphone 1 Mg/1 Ml Inj IV 0.5 mg Q3H PRN Administration Pain , Severe (7-10) Sodium Chloride 1,000 mls @ 75 mls/hr 09/13/20 00:15 09/14/20 01:36 Nacl 0.9% 1000 Ml IV 125 mls/hr DIRECT TRISH Administration Ceftriaxone Sodium 2 gm in 100 mls @ 200 mls/hr 09/13/20 10:00 09/14/20 09:45 Rocephin/Ns 2 Gm/100 Ml IV 200 mls/hr Q24HR TRISH Administration Protocol Sodium Chloride 500 mls @ 0 mls/hr 09/14/20 08:00 Nacl 0.9% 500 Ml IV 09/14/20 19:00 ONCE TRISH As Directed Memantine 5 mg 09/14/20 11:00 Memantine 5 Mg Tab PO BID TRISH Metoclopramide HCl 5 mg 09/13/20 00:17 Metoclopramide 10 Mg/2 Ml Inj IV Q6H PRN Nausea And Vomiting Multivitamins/Minerals 1 each 09/13/20 10:00 09/14/20 09:43 Calcium Carb/Vit D3/Minerals 600 Mg/800 Units Tab PO 1 each BID TRISH Administration Ondansetron HCl 4 mg 09/13/20 00:05 Ondansetron 4 Mg/2 Ml Inj IV Q8H PRN Nausea And Vomiting Oxycodone/Acetaminophen 1 tab 09/13/20 00:05 Oxycodone /Acetaminophen 5-325mg Tab PO Q6H PRN Pain, Moderate (4-6) Sodium Chloride 10 ml 09/13/20 10:00 09/14/20 09:43 Sodium Chloride 0.9% 10 Ml Flush Syringe IV 10 ml BID TRISH Administration Sodium Chloride 10 ml 09/13/20 00:05 Sodium Chloride 0.9% 10 Ml Flush Syringe IV PRN PRN LINE FLUSH Nutrition/Malnutrition Assess - Dietary Evaluation Nutrition/Malnutrition Findings: Nutrition Notes Start: 09/13/20 11:47 Freq: Status: Active Protocol: Document 09/13/20 11:47 MK (Rec: 09/13/20 11:53 MK [id number]) Nutrition Notes Need for Assessment generated from: MD Order,Low BMI Initial or Follow up Assessment Other Pertinent Diagnosis UTI, anemia, acute encephalopathy Current Diet Cardiac Labs/Tests Na 136 BUN 19 Ca 7.5 Pertinent Medications MVI NS at 125 ml/hr Height 5 ft 3 in Weight 63.2 kg [place] Body Weight (kg) 52.27 BMI 24.7 Weight Status Appropriate Subjective/Other Information MD order for ONS. Screen for low BMI. Pt did not appear 42kg and new wt obtained. Pt has no physical signs of malnutiriton. 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 Pt did not eat breakfast because she was sleeping. She drank 100% of ONS at time of visit which she enjoyed and would like daily. Burn Absent Trauma Absent GI Symptoms None Minimum of two criteria No physical signs of malnutrition #1 Nutrition Diagnosis No nutrition diagnosis at this time Is patient on ventilator? No Is Patient Ambulatory and/or Out of Bed No REE-([place]. Jeor-confined to bed) 1292.268 [facility] Additional Notes Protein: (1-1.2g/kg) 63-76g Fluid: 1ml/kcal or per MD Nutrition Intervention Change Diet Order: Continue Add Supplement/Snack (indicate name/kcal Ensure Enlive BID /protein ) Provides kCal: 700 Provides Protein (gm) 40 Goal #1 Meet at least 75% of protein and energy needs via PO and ONS intakes Anticipated Discharge Needs: Regular Follow-Up By: 09/16/20 Additional Comments FU for stable intakes
[2020-09-14] MEDS: MEMANTINE 5 MG TAB PO SCH ×2 (16:58→21:37)
[2020-09-14] MEDS: ESCITALOPRAM 10 MG TAB PO SCH (16:58)
[2020-09-15] MEDS: SODIUM CHLORIDE 0.9% 1000 ML 1,000 ML IV SCH ×2 (05:16→18:08)
[2020-09-15 07:21] LABS: Hematocrit 26.1 % (30.3-42.9); Mean Corpuscular HGB Conc 34 % (30-34); Mean Corpuscular Volume 98 fl (79-97); Platelet Count 170 K/mm3 (140-440); Red Blood Count 2.67 M/mm3 (3.65-5.03)
--- NOTE | 2020-09-15 08:47 | Progress Note ---
Assessment and Plan Assessment and plan: 80yo with acute encephalopathy 2/2 dehydration/uti. - Patient Problems (1) Acute encephalopathy Current Visit: Yes Status: Acute Plan to address problem: Multifactorial including low sodium urinary tract infection and underlying dementia improving with fluids (2) Hyponatremia Current Visit: Yes Status: Acute Plan to address problem: IV normal saline for now resolving with fluids (3) Hematoma of right hip Current Visit: Yes Status: Acute Qualifiers: Encounter type: initial encounter Qualified Code(s): S70.01XA - Contusion of right hip, initial encounter Plan to address problem: Ortho consult requested, awaiting recommendations CT of abd/pelvis reviewed Hematoma enlarging, may need repeat CT scan of right hip, will await Ortho recommendations (4) Anemia secondary to blood loss/hematoma Current Visit: Yes Status: Acute Qualifiers: Anemia type: unspecified type Qualified Code(s): D64.9 - Anemia, unspecified Plan to address problem: Anemia possibly secondary to hematoma Iron deficiency Hemoglobin resolved with blood transfusion x1 (5) Urinary tract infection Current Visit: Yes Status: Acute Qualifiers: Urinary tract infection type: acute cystitis Plan to address problem: continue IV Rocephin (6) Malnutrition Current Visit: Yes Status: Chronic Qualifiers: Protein-calorie malnutrition severity: mild Plan to address problem: Initiated on dietary supplements (7) Hypocalcemia Current Visit: Yes Status: Acute Plan to address problem: On Caltrate (8) DVT prophylaxis Current Visit: Yes Status: Acute Plan to address problem: On heparin and GI prophylaxis Disposition: continue fluids, PT ordered. Transfuse patient, spoke with family, patient will most likely need rehab and is willing for the patient to go to SNF. History Interval history: 09/13 pt seen, states she's improved, continues to have pain in right hip 09/14: Patient seen, continues to have pain in her right hip. Hematoma has enlarged. However patient is less confused today. Seems to be at baseline. 09/13: Patient seen this morning, does not complain of any pain. Seems a bit lethargic, possibly secondary to the Depakote given last night which is her normal dose. Family states that she can get drowsy after taking it. Hospitalist Physical - Physical exam Narrative exam: General appearance no acute distress, well-nourished EENT: PERRL, EOM intact, hearing intact, clear oral mucosa, dentition normal Neck: Present: supple, normal ROM Respiratory: bilateral: CTA, negative: rales, rhonchi, wheezing Cardiovascular: Regular rate/rhythm, Normal S1 & S2. No gallop, rub Extremities: firm right hip with pain to palpation, hematoma noted, tender to touch Abdominal: soft, non-tender, non-distended, normal bowel sounds Integumentary: Present: clear, warm, dry ecchymosis in right hip Neurologic: CNII-XII intact, moving upper extremities, - Constitutional Vitals: Temp Pulse Resp BP Pulse Ox 99.2 F 87 18 144/72 96 09/15/20 07:13 09/15/20 07:13 09/15/20 07:13 09/15/20 07:13 09/15/20 07:13 General appearance: Present: no acute distress, well-nourished HEART Score - HEART Score Troponin: Troponin T < 0.010 ng/mL (0.00-0.029) 09/12/20 14:21 Results - Labs CBC & Chem 7: 09/15/20 06:26 09/14/20 06:25 Labs: Laboratory Last Values WBC 9.0 K/mm3 (4.5-11.0) 09/15/20 06:26 RBC 2.67 M/mm3 (3.65-5.03) L 09/15/20 06:26 Hgb 9.0 gm/dl (10.1-14.3) L 09/15/20 06:26 Hct 26.1 % (30.3-42.9) L 09/15/20 06:26 MCV 98 fl (79-97) H 09/15/20 06:26 MCH 34 pg (28-32) H 09/15/20 06:26 MCHC 34 % (30-34) 09/15/20 06:26 RDW 15.0 % (13.2-15.2) 09/15/20 06:26 Plt Count 170 K/mm3 (140-440) 09/15/20 06:26 Lymph % (Auto) 19.0 % (13.4-35.0) 09/14/20 06:25 [place] % (Auto) 17.8 % (0.0-7.3) H 09/14/20 06:25 Eos % (Auto) 0.6 % (0.0-4.3) 09/14/20 06:25 Baso % (Auto) 0.1 % (0.0-1.8) 09/14/20 06:25 Lymph # (Auto) 1.1 K/mm3 (1.2-5.4) L 09/14/20 06:25 [place] # (Auto) 1.0 K/mm3 (0.0-0.8) H 09/14/20 06:25 Eos # (Auto) 0.0 K/mm3 (0.0-0.4) 09/14/20 06:25 Baso # (Auto) 0.0 K/mm3 (0.0-0.1) 09/14/20 06:25 Add Manual Diff Complete 09/13/20 07:12 Total Counted 100 09/13/20 07:12 Seg Neutrophils % 62.5 % (40.0-70.0) 09/14/20 06:25 Seg Neuts % (Manual) 61.0 % (40.0-70.0) 09/13/20 07:12 Band Neutrophils % 1.0 % 09/13/20 07:12 Lymphocytes % (Manual) 27.0 % (13.4-35.0) 09/13/20 07:12 Monocytes % (Manual) 11.0 % (0.0-7.3) H 09/13/20 07:12 Nucleated RBC % Not Reportable 09/13/20 07:12 Seg Neutrophils # 3.6 K/mm3 (1.8-7.7) 09/14/20 06:25 Seg Neutrophils # Man 3.5 K/mm3 (1.8-7.7) 09/13/20 07:12 Band Neutrophils # 0.1 K/mm3 09/13/20 07:12 Lymphocytes # (Manual) 1.5 K/mm3 (1.2-5.4) 09/13/20 07:12 Abs React Lymphs (Man) 0.0 K/mm3 09/13/20 07:12 Monocytes # (Manual) 0.6 K/mm3 (0.0-0.8) 09/13/20 07:12 Eosinophils # (Manual) 0.0 K/mm3 (0.0-0.4) 09/13/20 07:12 Basophils # (Manual) 0.0 K/mm3 (0.0-0.1) 09/13/20 07:12 Metamyelocytes # 0.0 K/mm3 09/13/20 07:12 Myelocytes # 0.0 K/mm3 09/13/20 07:12 Promyelocytes # 0.0 K/mm3 09/13/20 07:12 Blast Cells # 0.0 K/mm3 09/13/20 07:12 WBC Morphology Not Reportable 09/13/20 07:12 Hypersegmented Neuts Not Reportable 09/13/20 07:12 Hyposegmented Neuts Not Reportable 09/13/20 07:12 Hypogranular Neuts Not Reportable 09/13/20 07:12 Smudge Cells Not Reportable 09/13/20 07:12 Toxic Granulation Not Reportable 09/13/20 07:12 Toxic Vacuolation Not Reportable 09/13/20 07:12 Dohle Bodies Not Reportable 09/13/20 07:12 Pelger-Huet Anomaly Not Reportable 09/13/20 07:12 Tracey Rods Not Reportable 09/13/20 07:12 Platelet Estimate Consistent w auto 09/13/20 07:12 Clumped Platelets Not Reportable 09/13/20 07:12 Plt Clumps, EDTA Not Reportable 09/13/20 07:12 Large Platelets Not Reportable 09/13/20 07:12 Giant Platelets Not Reportable 09/13/20 07:12 Platelet Satelliting Not Reportable 09/13/20 07:12 Plt Morphology Comment Not Reportable 09/13/20 07:12 RBC Morphology Normal 09/13/20 07:12 Dimorphic RBCs Not Reportable 09/13/20 07:12 Polychromasia Not Reportable 09/13/20 07:12 Hypochromasia Not Reportable 09/13/20 07:12 Poikilocytosis Not Reportable 09/13/20 07:12 Anisocytosis Not Reportable 09/13/20 07:12 Microcytosis Not Reportable 09/13/20 07:12 Macrocytosis Not Reportable 09/13/20 07:12 Spherocytes Not Reportable 09/13/20 07:12 Pappenheimer Bodies Not Reportable 09/13/20 07:12 Sickle Cells Not Reportable 09/13/20 07:12 Target Cells Not Reportable 09/13/20 07:12 Tear Drop Cells Not Reportable 09/13/20 07:12 Ovalocytes Not Reportable 09/13/20 07:12 Helmet Cells Not Reportable 09/13/20 07:12 [facility] Bodies Not Reportable 09/13/20 07:12 [place] Rings Not Reportable 09/13/20 07:12 Nelli Cells Not Reportable 09/13/20 07:12 Bite Cells Not Reportable 09/13/20 07:12 Crenated Cell Not Reportable 09/13/20 07:12 Elliptocytes Not Reportable 09/13/20 07:12 Acanthocytes (Spur) Not Reportable 09/13/20 07:12 Rouleaux Not Reportable 09/13/20 07:12 Hemoglobin C Crystals Not Reportable 09/13/20 07:12 Schistocytes Not Reportable 09/13/20 07:12 Malaria parasites Not Reportable 09/13/20 07:12 Dmitri Bodies Not Reportable 09/13/20 07:12 Hem Pathologist Commnt No 09/13/20 07:12 PT 14.3 Sec. (12.2-14.9) 09/12/20 14:21 INR 1.13 (0.87-1.13) 09/12/20 14:21 VBG pH 7.350 (7.320-7.420) 09/12/20 14:21 Sodium 139 mmol/L (137-145) 09/14/20 06:25 Potassium 3.9 mmol/L (3.6-5.0) 09/14/20 06:25 Chloride 103.6 mmol/L (98-107) 09/14/20 06:25 Carbon Dioxide 28 mmol/L (22-30) 09/14/20 06:25 Anion Gap 11 mmol/L 09/14/20 06:25 BUN 13 mg/dL (7-17) 09/14/20 06:25 Creatinine 0.5 mg/dL (0.6-1.2) L 09/14/20 06:25 Estimated GFR > 60 ml/min 09/14/20 06:25 BUN/Creatinine Ratio 26 % 09/14/20 06:25 Glucose 111 mg/dL (65-100) H 09/14/20 06:25 Hemoglobin A1c 5.8 % (4-6) 09/13/20 07:12 Lactic Acid 1.50 mmol/L (0.7-2.0) 09/12/20 17:08 Calcium 7.8 mg/dL (8.4-10.2) L 09/14/20 06:25 Magnesium 2.00 mg/dL (1.7-2.3) 09/12/20 14:21 Iron 24 ug/dL (37-170) L 09/12/20 17:08 TIBC 211 mcg/dL (250-450) L 09/12/20 17:08 Total Bilirubin 0.20 mg/dL (0.1-1.2) 09/13/20 07:12 Direct Bilirubin < 0.2 mg/dL (0-0.2) 09/12/20 14:21 Indirect Bilirubin 0.0 mg/dL 09/12/20 14:21 AST 15 units/L (5-40) 09/13/20 07:12 ALT < 5 units/L (7-56) L 09/13/20 07:12 Alkaline Phosphatase 40 units/L (35-129) 09/13/20 07:12 Total Creatine Kinase 22 units/L (30-135) L 09/12/20 14:21 CK-MB (CK-2) 1.4 ng/mL (0.0-4.0) 09/12/20 14:21 CK-MB (CK-2) Rel Index 6.3 (0-4) H 09/12/20 14:21 Troponin T < 0.010 ng/mL (0.00-0.029) 09/12/20 14:21 NT-Pro-B Natriuret Pep 416.2 pg/mL (0-900) 09/12/20 14:21 Total Protein 4.0 g/dL (6.3-8.2) L 09/13/20 07:12 Albumin 2.3 g/dL (3.9-5) L 09/13/20 07:12 Albumin/Globulin Ratio 1.4 % 09/13/20 07:12 Vitamin B12 593.2 pg/mL (211-911) 09/12/20 17:08 Folate 19.13 ng/mL (7.3-26.0) 09/12/20 17:08 Urine Color Vickie (Yellow) 09/12/20 16:46 Urine Turbidity Cloudy (Clear) 09/12/20 16:46 Urine pH 5.0 (5.0-7.0) 09/12/20 16:46 Ur Specific [place] 1.019 (1.003-1.030) 09/12/20 16:46 Urine Protein 30 mg/dl mg/dL (Negative) 09/12/20 16:46 Urine Glucose (UA) Neg mg/dL (Negative) 09/12/20 16:46 Urine Ketones Neg mg/dL (Negative) 09/12/20 16:46 Urine Blood Neg (Negative) 09/12/20 16:46 Urine Nitrite Neg (Negative) 09/12/20 16:46 Urine Bilirubin Neg (Negative) 09/12/20 16:46 Urine Urobilinogen < 2.0 mg/dL (<2.0) 09/12/20 16:46 Ur Leukocyte Esterase Mod (Negative) 09/12/20 16:46 Urine WBC (Auto) 90.0 /HPF (0.0-6.0) H 09/12/20 16:46 Urine RBC (Auto) 4.0 /HPF (0.0-6.0) 09/12/20 16:46 U Epithel Cells (Auto) < 1.0 /HPF (0-13.0) 09/12/20 16:46 Urine Mucus 1+ /HPF 09/12/20 16:46 Blood Type O POSITIVE 09/12/20 14:35 Antibody Screen Negative 09/12/20 14:35 Crossmatch See Detail 09/12/20 14:35 Microbiology: Microbiology 09/12/20 14:21 Peripheral/Venous Blood Culture - Preliminary NO GROWTH AFTER 48 HOURS 09/12/20 14:21 Peripheral/Venous Blood Culture - Preliminary NO GROWTH AFTER 48 HOURS 09/12/20 16:46 Urine,Catheterized - Straight Catheter Urine Culture - Final NO GROWTH AFTER 48 HOURS [place]/IV: Voiding Method Bedpan Active Medications - Current Medications Current Medications: Generic Name Dose Route Start Last Admin Trade Name Freq PRN Reason Stop Dose Admin Acetaminophen 650 mg 09/13/20 00:05 Acetaminophen 325 Mg Tab PO Q4H PRN Pain MILD(1-3)/Fever >100.5/IGNACIO Divalproex Sodium 1,500 mg 09/15/20 21:[address] 500 Mg Tab PO QDAY@2100 TRISH Escitalopram Oxalate 10 mg 09/14/20 11:00 09/14/20 16:58 Escitalopram 10 Mg Tab PO 10 mg DAILY TRISH Administration Famotidine 10 mg 09/13/20 01:00 09/14/20 21:37 Famotidine 20 Mg/2 Ml Inj IV 10 mg BID TRISH Administration Hydromorphone HCl 0.5 mg 09/12/20 21:29 09/12/20 22:16 Hydromorphone 1 Mg/1 Ml Inj IV 0.5 mg Q3H PRN Administration Pain , Severe (7-10) Sodium Chloride 1,000 mls @ 75 mls/hr 09/13/20 00:15 09/15/20 05:16 Nacl 0.9% 1000 Ml IV 125 mls/hr DIRECT TRISH Administration Ceftriaxone Sodium 2 gm in 100 mls @ 200 mls/hr 09/13/20 10:00 09/14/20 09:45 Rocephin/Ns 2 Gm/100 Ml IV 200 mls/hr Q24HR TRISH Administration Protocol Memantine 5 mg 09/14/20 11:00 09/14/20 21:37 Memantine 5 Mg Tab PO 5 mg BID TRISH Administration Metoclopramide HCl 5 mg 09/13/20 00:17 Metoclopramide 10 Mg/2 Ml Inj IV Q6H PRN Nausea And Vomiting Multivitamins/Minerals 1 each 09/13/20 10:00 09/14/20 21:37 Calcium Carb/Vit D3/Minerals 600 Mg/800 Units Tab PO 1 each BID TRISH Administration Ondansetron HCl 4 mg 09/13/20 00:05 Ondansetron 4 Mg/2 Ml Inj IV Q8H PRN Nausea And Vomiting Oxycodone/Acetaminophen 1 tab 09/13/20 00:05 Oxycodone /Acetaminophen 5-325mg Tab PO Q6H PRN Pain, Moderate (4-6) Sodium Chloride 10 ml 09/13/20 10:00 09/14/20 21:37 Sodium Chloride 0.9% 10 Ml Flush Syringe IV 10 ml BID TRISH Administration Sodium Chloride 10 ml 09/13/20 00:05 Sodium Chloride 0.9% 10 Ml Flush Syringe IV PRN PRN LINE FLUSH Nutrition/Malnutrition Assess - Dietary Evaluation Nutrition/Malnutrition Findings: Nutrition Notes Start: 09/13/20 11:47 Freq: Status: Active Protocol: Document 09/13/20 11:47 (Rec: 09/13/20 11:53 [id number]) Nutrition Notes Need for Assessment generated from: MD Order,Low BMI Initial or Follow up Assessment Other Pertinent Diagnosis UTI, anemia, acute encephalopathy Current Diet Cardiac Labs/Tests Na 136 BUN 19 Ca 7.5 Pertinent Medications MVI NS at 125 ml/hr Height 5 ft 3 in Weight 63.2 kg [place] Body Weight (kg) 52.27 BMI 24.7 Weight Status Appropriate Subjective/Other Information MD order for ONS. Screen for low BMI. Pt did not appear 42kg and new wt obtained. Pt has no physical signs of malnutiriton. 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 Pt did not eat breakfast because she was sleeping. She drank 100% of ONS at time of visit which she enjoyed and would like daily. Burn Absent Trauma Absent GI Symptoms None Minimum of two criteria No physical signs of malnutrition #1 Nutrition Diagnosis No nutrition diagnosis at this time Is patient on ventilator? No Is Patient Ambulatory and/or Out of Bed No REE-([facility]-confined to bed) 1292.268 Calculation Used for Recommendations [facility] Additional Notes Protein: (1-1.2g/kg) 63-76g Fluid: 1ml/kcal or per MD Nutrition Intervention Change Diet Order: Continue Add Supplement/Snack (indicate name/kcal Ensure Enlive BID /protein ) Provides kCal: 700 Provides Protein (gm) 40 Goal #1 Meet at least 75% of protein and energy needs via PO and ONS intakes Anticipated Discharge Needs: Regular Follow-Up By: 09/16/20 Additional Comments FU for stable intakes
[2020-09-15] MEDS: CALCIUM CARB/VIT D3/MINERALS 600 MG/800 UNITS TAB PO SCH ×2 (09:32→22:22)
[2020-09-15] MEDS: MEMANTINE 5 MG TAB PO SCH ×2 (09:32→22:30)
[2020-09-15] MEDS: cefTRIAXone/NS 2 GM/100 ML 2 GM/100 ML BAG IV SCH (09:32)
[2020-09-15] MEDS: ESCITALOPRAM 10 MG TAB PO SCH (09:32)
[2020-09-15] MEDS: FAMOTIDINE 20 MG/2 ML INJ IV SCH (09:36)
[2020-09-15] MEDS: DIVALPROEX DR 500 MG TAB PO SCH (22:21)
[2020-09-15] MEDS: FAMOTIDINE 10 MG TAB PO SCH (22:22)
[2020-09-15] MEDS: ACETAMINOPHEN 325 MG TAB PO PRN (22:22)
[2020-09-16 06:43] LABS: Hematocrit 24.2 % (30.3-42.9); Hemoglobin 8.4 gm/dl (10.1-14.3); Mean Corpuscular HGB Conc 35 % (30-34); Mean Corpuscular Volume 99 fl (79-97); Platelet Count 202 K/mm3 (140-440); Red Blood Count 2.46 M/mm3 (3.65-5.03); Red Cell Distribution Width 14.9 % (13.2-15.2)
[2020-09-16 07:07] LABS: Blood Urea Nitrogen 9 mg/dL (7-17); Calcium 7.7 mg/dL (8.4-10.2); Hemolysis Index 1
[2020-09-16 07:34] LABS: BUN/Creatinine Ratio 30
[2020-09-16] MEDS: cefTRIAXone/NS 2 GM/100 ML 2 GM/100 ML BAG IV SCH (09:27)
[2020-09-16] MEDS: ESCITALOPRAM 10 MG TAB PO SCH (09:29)
[2020-09-16] MEDS: FAMOTIDINE 10 MG TAB PO SCH ×2 (09:29→21:30)
[2020-09-16] MEDS: CALCIUM CARB/VIT D3/MINERALS 600 MG/800 UNITS TAB PO SCH ×2 (09:29→21:30)
[2020-09-16] MEDS: MEMANTINE 5 MG TAB PO SCH ×2 (09:29→21:30)
--- NOTE | 2020-09-16 13:51 | Progress Note ---
Assessment and Plan Assessment and plan: 80yo with acute encephalopathy 2/2 dehydration/uti. - Patient Problems (1) Acute encephalopathy Current Visit: Yes Status: Acute Plan to address problem: Multifactorial including low sodium urinary tract infection and underlying dementia improving with fluids (2) Hyponatremia Current Visit: Yes Status: Acute Plan to address problem: IV normal saline for now resolving with fluids (3) Hematoma of right hip Current Visit: Yes Status: Acute Qualifiers: Encounter type: initial encounter Qualified Code(s): S70.01XA - Contusion of right hip, initial encounter Plan to address problem: Ortho consult requested, awaiting recommendations CT of abd/pelvis reviewed Hematoma seems to be stable but in the right flank, will obtain CT of abdomen and pelvis (4) Anemia secondary to blood loss/hematoma Current Visit: Yes Status: Acute Qualifiers: Anemia type: unspecified type Qualified Code(s): D64.9 - Anemia, unspecified Plan to address problem: Anemia possibly secondary to hematoma Iron deficiency Hemoglobin resolved with blood transfusion x1 (5) Urinary tract infection Current Visit: Yes Status: Acute Qualifiers: Urinary tract infection type: acute cystitis Plan to address problem: continue IV Rocephin (6) Malnutrition Current Visit: Yes Status: Chronic Qualifiers: Protein-calorie malnutrition severity: mild Plan to address problem: Initiated on dietary supplements (7) Hypocalcemia Current Visit: Yes Status: Acute Plan to address problem: On Caltrate (8) DVT prophylaxis Current Visit: Yes Status: Acute Plan to address problem: On heparin and GI prophylaxis Disposition: Pending CT of the abdomen and pelvis to reevaluate hematoma. Hemoglobin stable, patient to work with physical therapy and Occupational Therapy, patient will need SNF placement History Interval history: 09/13 pt seen, states she's improved, continues to have pain in right hip 09/14: Patient seen, continues to have pain in her right hip. Hematoma has enlarged. However patient is less confused today. Seems to be at baseline. 09/15: Patient seen this morning, does not complain of any pain. Seems a bit lethargic, possibly secondary to the Depakote given last night which is her normal dose. Family states that she can get drowsy after taking it. 09/16: Patient seen this morning, awake, no complaints except the pain in her ri ght hip. No fevers or chills. Physical therapy needs to work with the patient. Hospitalist Physical - Physical exam Narrative exam: General appearance no acute distress, well-nourished EENT: PERRL, EOM intact, hearing intact, clear oral mucosa, dentition normal Neck: Present: supple, normal ROM Respiratory: bilateral: CTA, negative: rales, rhonchi, wheezing Cardiovascular: Regular rate/rhythm, Normal S1 & S2. No gallop, rub Extremities: firm right hip with pain to palpation, hematoma noted, tracking to the right flank, tender to touch Abdominal: soft, non-tender, non-distended, normal bowel sounds Integumentary: Present: clear, warm, dry ecchymosis in right hip tracking to the right flank Neurologic: CNII-XII intact, moving upper extremities, - Constitutional Vitals: Temp Pulse Resp BP Pulse Ox 98.9 F 85 20 122/56 90 09/16/20 11:30 09/16/20 11:30 09/16/20 11:30 09/16/20 11:30 09/16/20 11:30 General appearance: Present: no acute distress, well-nourished HEART Score - HEART Score Troponin: Troponin T < 0.010 ng/mL (0.00-0.029) 09/12/20 14:21 Results - Labs CBC & Chem 7: 09/16/20 06:05 09/16/20 06:05 Labs: Laboratory Last Values WBC 7.5 K/mm3 (4.5-11.0) 09/16/20 06:05 RBC 2.46 M/mm3 (3.65-5.03) L 09/16/20 06:05 Hgb 8.4 gm/dl (10.1-14.3) L 09/16/20 06:05 Hct 24.2 % (30.3-42.9) L 09/16/20 06:05 MCV 99 fl (79-97) H 09/16/20 06:05 MCH 34 pg (28-32) H 09/16/20 06:05 MCHC 35 % (30-34) H 09/16/20 06:05 RDW 14.9 % (13.2-15.2) 09/16/20 06:05 Plt Count 202 K/mm3 (140-440) 09/16/20 06:05 Lymph % (Auto) 19.0 % (13.4-35.0) 09/14/20 06:25 Davis % (Auto) 17.8 % (0.0-7.3) H 09/14/20 06:25 Eos % (Auto) 0.6 % (0.0-4.3) 09/14/20 06:25 Baso % (Auto) 0.1 % (0.0-1.8) 09/14/20 06:25 Lymph # (Auto) 1.1 K/mm3 (1.2-5.4) L 09/14/20 06:25 Davis # (Auto) 1.0 K/mm3 (0.0-0.8) H 09/14/20 06:25 Eos # (Auto) 0.0 K/mm3 (0.0-0.4) 09/14/20 06:25 Baso # (Auto) 0.0 K/mm3 (0.0-0.1) 09/14/20 06:25 Add Manual Diff Complete 09/13/20 07:12 Total Counted 100 09/13/20 07:12 Seg Neutrophils % 62.5 % (40.0-70.0) 09/14/20 06:25 Seg Neuts % (Manual) 61.0 % (40.0-70.0) 09/13/20 07:12 Band Neutrophils % 1.0 % 09/13/20 07:12 Lymphocytes % (Manual) 27.0 % (13.4-35.0) 09/13/20 07:12 Monocytes % (Manual) 11.0 % (0.0-7.3) H 09/13/20 07:12 Nucleated RBC % Not Reportable 09/13/20 07:12 Seg Neutrophils # 3.6 K/mm3 (1.8-7.7) 09/14/20 06:25 Seg Neutrophils # Man 3.5 K/mm3 (1.8-7.7) 09/13/20 07:12 Band Neutrophils # 0.1 K/mm3 09/13/20 07:12 Lymphocytes # (Manual) 1.5 K/mm3 (1.2-5.4) 09/13/20 07:12 Abs React Lymphs (Man) 0.0 K/mm3 09/13/20 07:12 Monocytes # (Manual) 0.6 K/mm3 (0.0-0.8) 09/13/20 07:12 Eosinophils # (Manual) 0.0 K/mm3 (0.0-0.4) 09/13/20 07:12 Basophils # (Manual) 0.0 K/mm3 (0.0-0.1) 09/13/20 07:12 Metamyelocytes # 0.0 K/mm3 09/13/20 07:12 Myelocytes # 0.0 K/mm3 09/13/20 07:12 Promyelocytes # 0.0 K/mm3 09/13/20 07:12 Blast Cells # 0.0 K/mm3 09/13/20 07:12 WBC Morphology Not Reportable 09/13/20 07:12 Hypersegmented Neuts Not Reportable 09/13/20 07:12 Hyposegmented Neuts Not Reportable 09/13/20 07:12 Hypogranular Neuts Not Reportable 09/13/20 07:12 Smudge Cells Not Reportable 09/13/20 07:12 Toxic Granulation Not Reportable 09/13/20 07:12 Toxic Vacuolation Not Reportable 09/13/20 07:12 Dohle Bodies Not Reportable 09/13/20 07:12 Pelger-Huet Anomaly Not Reportable 09/13/20 07:12 Tracey Rods Not Reportable 09/13/20 07:12 Platelet Estimate Consistent w auto 09/13/20 07:12 Clumped Platelets Not Reportable 09/13/20 07:12 Plt Clumps, EDTA Not Reportable 09/13/20 07:12 Large Platelets Not Reportable 09/13/20 07:12 Giant Platelets Not Reportable 09/13/20 07:12 Platelet Satelliting Not Reportable 09/13/20 07:12 Plt Morphology Comment Not Reportable 09/13/20 07:12 RBC Morphology Normal 09/13/20 07:12 Dimorphic RBCs Not Reportable 09/13/20 07:12 Polychromasia Not Reportable 09/13/20 07:12 Hypochromasia Not Reportable 09/13/20 07:12 Poikilocytosis Not Reportable 09/13/20 07:12 Anisocytosis Not Reportable 09/13/20 07:12 Microcytosis Not Reportable 09/13/20 07:12 Macrocytosis Not Reportable 09/13/20 07:12 Spherocytes Not Reportable 09/13/20 07:12 Pappenheimer Bodies Not Reportable 09/13/20 07:12 Sickle Cells Not Reportable 09/13/20 07:12 Target Cells Not Reportable 09/13/20 07:12 Tear Drop Cells Not Reportable 09/13/20 07:12 Ovalocytes Not Reportable 09/13/20 07:12 Helmet Cells Not Reportable 09/13/20 07:12 [place] Bodies Not Reportable 09/13/20 07:12 [place] Rings Not Reportable 09/13/20 07:12 Nelli Cells Not Reportable 09/13/20 07:12 Bite Cells Not Reportable 09/13/20 07:12 Crenated Cell Not Reportable 09/13/20 07:12 Elliptocytes Not Reportable 09/13/20 07:12 Acanthocytes (Spur) Not Reportable 09/13/20 07:12 Rouleaux Not Reportable 09/13/20 07:12 Hemoglobin C Crystals Not Reportable 09/13/20 07:12 Schistocytes Not Reportable 09/13/20 07:12 Malaria parasites Not Reportable 09/13/20 07:12 Dmitri Bodies Not Reportable 09/13/20 07:12 Hem Pathologist Commnt No 09/13/20 07:12 PT 14.3 Sec. (12.2-14.9) 09/12/20 14:21 INR 1.13 (0.87-1.13) 09/12/20 14:21 VBG pH 7.350 (7.320-7.420) 09/12/20 14:21 Sodium 135 mmol/L (137-145) L 09/16/20 06:05 Potassium 3.7 mmol/L (3.6-5.0) 09/16/20 06:05 Chloride 100.0 mmol/L (98-107) 09/16/20 06:05 Carbon Dioxide 28 mmol/L (22-30) 09/16/20 06:05 Anion Gap 11 mmol/L 09/16/20 06:05 BUN 9 mg/dL (7-17) 09/16/20 06:05 Creatinine 0.3 mg/dL (0.6-1.2) L 09/16/20 06:05 Estimated GFR > 60 ml/min 09/16/20 06:05 BUN/Creatinine Ratio 30 % 09/16/20 06:05 Glucose 88 mg/dL (65-100) 09/16/20 06:05 Hemoglobin A1c 5.8 % (4-6) 09/13/20 07:12 Lactic Acid 1.50 mmol/L (0.7-2.0) 09/12/20 17:08 Calcium 7.7 mg/dL (8.4-10.2) L 09/16/20 06:05 Magnesium 2.00 mg/dL (1.7-2.3) 09/12/20 14:21 Iron 24 ug/dL (37-170) L 09/12/20 17:08 TIBC 211 mcg/dL (250-450) L 09/12/20 17:08 Total Bilirubin 0.20 mg/dL (0.1-1.2) 09/13/20 07:12 Direct Bilirubin < 0.2 mg/dL (0-0.2) 09/12/20 14:21 Indirect Bilirubin 0.0 mg/dL 09/12/20 14:21 AST 15 units/L (5-40) 09/13/20 07:12 ALT < 5 units/L (7-56) L 09/13/20 07:12 Alkaline Phosphatase 40 units/L (35-129) 09/13/20 07:12 Total Creatine Kinase 22 units/L (30-135) L 09/12/20 14:21 CK-MB (CK-2) 1.4 ng/mL (0.0-4.0) 09/12/20 14:21 CK-MB (CK-2) Rel Index 6.3 (0-4) H 09/12/20 14:21 Troponin T < 0.010 ng/mL (0.00-0.029) 09/12/20 14:21 NT-Pro-B Natriuret Pep 416.2 pg/mL (0-900) 09/12/20 14:21 Total Protein 4.0 g/dL (6.3-8.2) L 09/13/20 07:12 Albumin 2.3 g/dL (3.9-5) L 09/13/20 07:12 Albumin/Globulin Ratio 1.4 % 09/13/20 07:12 Vitamin B12 593.2 pg/mL (211-911) 09/12/20 17:08 Folate 19.13 ng/mL (7.3-26.0) 09/12/20 17:08 Urine Color Vickie (Yellow) 09/12/20 16:46 Urine Turbidity Cloudy (Clear) 09/12/20 16:46 Urine pH 5.0 (5.0-7.0) 09/12/20 16:46 Ur Specific [place] 1.019 (1.003-1.030) 09/12/20 16:46 Urine Protein 30 mg/dl mg/dL (Negative) 09/12/20 16:46 Urine Glucose (UA) Neg mg/dL (Negative) 09/12/20 16:46 Urine Ketones Neg mg/dL (Negative) 09/12/20 16:46 Urine Blood Neg (Negative) 09/12/20 16:46 Urine Nitrite Neg (Negative) 09/12/20 16:46 Urine Bilirubin Neg (Negative) 09/12/20 16:46 Urine Urobilinogen < 2.0 mg/dL (<2.0) 09/12/20 16:46 Ur Leukocyte Esterase Mod (Negative) 09/12/20 16:46 Urine WBC (Auto) 90.0 /HPF (0.0-6.0) H 09/12/20 16:46 Urine RBC (Auto) 4.0 /HPF (0.0-6.0) 09/12/20 16:46 U Epithel Cells (Auto) < 1.0 /HPF (0-13.0) 09/12/20 16:46 Urine Mucus 1+ /HPF 09/12/20 16:46 Blood Type O POSITIVE 09/12/20 14:35 Antibody Screen Negative 09/12/20 14:35 Crossmatch See Detail 09/12/20 14:35 Microbiology: Microbiology 09/12/20 14:21 Peripheral/Venous Blood Culture - Preliminary NO GROWTH AFTER 72 HOURS 09/12/20 14:21 Peripheral/Venous Blood Culture - Preliminary NO GROWTH AFTER 72 HOURS [place]/IV: Voiding Method External Female Catheter Active Medications - Current Medications Current Medications: Generic Name Dose Route Start Last Admin Trade Name Freq PRN Reason Stop Dose Admin Acetaminophen 650 mg 09/13/20 00:05 09/15/20 22:22 Acetaminophen 325 Mg Tab PO 650 mg Q4H PRN Administration Pain MILD(1-3)/Fever >100.5/IGNACIO Divalproex Sodium 1,500 mg 09/15/20 21:00 09/15/20 22:[address] 500 Mg Tab PO 1,500 mg QDAY@2100 TRISH Administration Escitalopram Oxalate 10 mg 09/14/20 11:00 09/16/20 09:29 Escitalopram 10 Mg Tab PO 10 mg DAILY TRISH Administration Famotidine 10 mg 09/15/20 22:00 09/16/20 09:29 Famotidine 10 Mg Tab PO 10 mg BID TRISH Administration Hydromorphone HCl 0.5 mg 09/12/20 21:29 09/12/20 22:16 Hydromorphone 1 Mg/1 Ml Inj IV 0.5 mg Q3H PRN Administration Pain , Severe (7-10) Ceftriaxone Sodium 2 gm in 100 mls @ 200 mls/hr 09/13/20 10:00 09/16/20 09:27 Rocephin/Ns 2 Gm/100 Ml IV 09/19/20 10:29 200 mls/hr Q24HR TRISH Administration Protocol Memantine 5 mg 09/14/20 11:00 09/16/20 09:29 Memantine 5 Mg Tab PO 5 mg BID TRISH Administration Metoclopramide HCl 5 mg 09/13/20 00:17 Metoclopramide 10 Mg/2 Ml Inj IV Q6H PRN Nausea And Vomiting Multivitamins/Minerals 1 each 09/13/20 10:00 09/16/20 09:29 Calcium Carb/Vit D3/Minerals 600 Mg/800 Units Tab PO 1 each BID TRISH Administration Ondansetron HCl 4 mg 09/13/20 00:05 Ondansetron 4 Mg/2 Ml Inj IV Q8H PRN Nausea And Vomiting Oxycodone/Acetaminophen 1 tab 09/13/20 00:05 Oxycodone /Acetaminophen 5-325mg Tab PO Q6H PRN Pain, Moderate (4-6) Sodium Chloride 10 ml 09/13/20 10:00 09/16/20 09:29 Sodium Chloride 0.9% 10 Ml Flush Syringe IV 10 ml BID TRISH Administration Sodium Chloride 10 ml 09/13/20 00:05 Sodium Chloride 0.9% 10 Ml Flush Syringe IV PRN PRN LINE FLUSH Nutrition/Malnutrition Assess - Dietary Evaluation Nutrition/Malnutrition Findings: Nutrition Notes Start: 09/13/20 11:47 Freq: Status: Active Protocol: Document 09/16/20 12:42 CECY (Rec: 09/16/20 12:44 CECY [id number]) Nutrition Notes Initial or Follow up Brief Note Other Pertinent Diagnosis UTI, anemia, acute encephalopathy Current Diet Cardiac Labs/Tests Na 135 Pertinent Medications MVI Height 5 ft 3 in Weight 63.2 kg [place] Body Weight (kg) 52.27 BMI 24.7 Weight Status Appropriate Subjective/Other Information FU for intakes. Pt eating 50- 75% of meals and 100% of 2 ONS . Percent of energy/protein needs met: 100%/100% Burn Absent Trauma Absent GI Symptoms None Current % PO Fair (50-74%) Minimum of two criteria No physical signs of malnutrition #1 Nutrition Diagnosis No nutrition diagnosis at this time Is patient on ventilator? No Is Patient Ambulatory and/or Out of Bed No REE-([place]-St. Jeor-confined to bed) [phone] Calculation Used for Recommendations [facility] Additional Notes Protein: (1-1.2g/kg) 63-76g Fluid: 1ml/kcal or per MD Nutrition Intervention Change Diet Order: Continue Add Supplement/Snack (indicate name/kcal Ensure Enlive BID /protein ) Provides kCal: 700 Provides Protein (gm) 40 Goal #1 Meet at least 75% of protein and energy needs via PO and ONS intakes Anticipated Discharge Needs: Regular Follow-Up By: 09/23/20 Additional Comments FU for stable intakes
[2020-09-16] MEDS: HYDROmorphone 1 MG/1 ML INJ IV PRN (15:22)
--- NOTE | 2020-09-16 16:46 | Cat Scan Report ---
CT ABDOMEN AND PELVIS WITHOUT CONTRAST INDICATION / CLINICAL INFORMATION: right hip hematoma. TECHNIQUE: Axial CT images were obtained through the abdomen and pelvis without IV contrast. All CT scans at this location are performed using CT dose reduction for ALARA by means of automated exposure control. COMPARISON: CT from 09/12/2020 FINDINGS: LOWER CHEST: Enlarging small moderate right and small left pleural effusions with bibasilar volume lo ss. LIVER: No significant abnormality GALLBLADDER/BILIARY TREE: No significant abnormality PANCREAS: No significant abnormality SPLEEN: No significant abnormality ADRENALS: No significant abnormality KIDNEYS / URETER: Left nephrolithiasis. No ureteral calculus or hydronephrosis. URINARY BLADDER: Bladder is decompressed, though grossly unremarkable. REPRODUCTIVE ORGANS: Uterus is absent. No significant adnexal abnormality. BOWEL: Moderate colonic stool burden. No colonic wall thickening or pericolonic inflammatory strandin g. 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 LYMPH NODES: No significant adenopathy. VASCULATURE: Moderate atherosclerotic calcification without acute abnormality. OTHER: No intraperitoneal free air or free fluid. SKELETAL SYSTEM/SOFT TISSUES: Curvilinear hyperattenuating collection superficial to the right hip ap pears stable, measuring approximately 11.5 x 5.6 transaxially and approximately 15.3 cm in craniocaud al dimension. Asymmetric subcutaneous edema overlying the right hip is also similar. Scattered degene rative changes of the spine with stable remote-appearing L1 compression fracture. No acute osseous fi ndings identified. IMPRESSION: Stable appearance of large hematoma overlying the right hip. Signer Name: Won Stahl MD Signed: 09/16/2020 4:42 PM Workstation Name: [id number]
[2020-09-16] MEDS ORDERED: FUROSEMIDE 20 MG/2 ML INJ IV SCH (17:00)
[2020-09-16] MEDS: FUROSEMIDE 20 MG/2 ML INJ IV SCH (17:41)
[2020-09-16] MEDS: DIVALPROEX DR 500 MG TAB PO SCH (21:30)
[2020-09-16] MEDS: ACETAMINOPHEN 325 MG TAB PO PRN (23:15)
[2020-09-17 06:31] LABS: Hematocrit 24.2 % (30.3-42.9); Hemoglobin 8.5 gm/dl (10.1-14.3); Mean Corpuscular HGB Conc 35 % (30-34); Mean Corpuscular Volume 98 fl (79-97); Platelet Count 252 K/mm3 (140-440); Red Blood Count 2.47 M/mm3 (3.65-5.03); Red Cell Distribution Width 14.7 % (13.2-15.2)
[2020-09-17 06:48] LABS: Blood Urea Nitrogen 18 mg/dL (7-17); Calcium 8.3 mg/dL (8.4-10.2); Hemolysis Index 2
[2020-09-17 06:52] LABS: BUN/Creatinine Ratio 36
--- NOTE | 2020-09-17 09:10 | Progress Note ---
Assessment and Plan Assessment and plan: Metabolic encephalopathy Hyponatremia Right hip hematoma Acute blood loss anemia UTI Protein calorie malnutrition 09/17/2020. Repeat CAT scan on 09/16 reveals stable hematoma over the right hip. Beta natruretic peptide within normal range. Physical therapy recommends subacute rehab placement. History Interval history: No new issues overnight. Hospitalist Physical - Constitutional Vitals: Temp Pulse Resp BP Pulse Ox 98.7 F 79 16 106/56 96 09/17/20 05:02 09/17/20 05:02 09/17/20 05:02 09/17/20 05:02 09/17/20 05:02 General appearance: Present: no acute distress, well-nourished - EENT Eyes: Present: PERRL, EOM intact ENT: hearing intact, clear oral mucosa, dentition normal - Neck Neck: Present: supple, normal ROM - Respiratory Respiratory effort: normal Respiratory: bilateral: CTA - Cardiovascular Rhythm: regular Heart Sounds: Present: S1 & S2. Absent: gallop, rub - Extremities Extremities: no ischemia, No edema, Full ROM - Abdominal General gastrointestinal: soft, non-tender, non-distended, normal bowel sounds - Integumentary Integumentary: Present: clear, warm, dry - Neurologic Neurologic: CNII-XII intact, moves all extremities HEART Score - HEART Score Troponin: Troponin T < 0.010 ng/mL (0.00-0.029) 09/12/20 14:21 Results - Labs CBC & Chem 7: 09/17/20 05:58 09/17/20 05:58 Labs: Laboratory Last Values WBC 7.1 K/mm3 (4.5-11.0) 09/17/20 05:58 RBC 2.47 M/mm3 (3.65-5.03) L 09/17/20 05:58 Hgb 8.5 gm/dl (10.1-14.3) L 09/17/20 05:58 Hct 24.2 % (30.3-42.9) L 09/17/20 05:58 MCV 98 fl (79-97) H 09/17/20 05:58 MCH 34 pg (28-32) H 09/17/20 05:58 MCHC 35 % (30-34) H 09/17/20 05:58 RDW 14.7 % (13.2-15.2) 09/17/20 05:58 Plt Count 252 K/mm3 (140-440) 09/17/20 05:58 Lymph % (Auto) 19.0 % (13.4-35.0) 09/14/20 06:25 Mora % (Auto) 17.8 % (0.0-7.3) H 09/14/20 06:25 Eos % (Auto) 0.6 % (0.0-4.3) 09/14/20 06:25 Baso % (Auto) 0.1 % (0.0-1.8) 09/14/20 06:25 Lymph # (Auto) 1.1 K/mm3 (1.2-5.4) L 09/14/20 06:25 Mora # (Auto) 1.0 K/mm3 (0.0-0.8) H 09/14/20 06:25 Eos # (Auto) 0.0 K/mm3 (0.0-0.4) 09/14/20 06:25 Baso # (Auto) 0.0 K/mm3 (0.0-0.1) 09/14/20 06:25 Add Manual Diff Complete 09/13/20 07:12 Total Counted 100 09/13/20 07:12 Seg Neutrophils % 62.5 % (40.0-70.0) 09/14/20 06:25 Seg Neuts % (Manual) 61.0 % (40.0-70.0) 09/13/20 07:12 Band Neutrophils % 1.0 % 09/13/20 07:12 Lymphocytes % (Manual) 27.0 % (13.4-35.0) 09/13/20 07:12 Monocytes % (Manual) 11.0 % (0.0-7.3) H 09/13/20 07:12 Nucleated RBC % Not Reportable 09/13/20 07:12 Seg Neutrophils # 3.6 K/mm3 (1.8-7.7) 09/14/20 06:25 Seg Neutrophils # Man 3.5 K/mm3 (1.8-7.7) 09/13/20 07:12 Band Neutrophils # 0.1 K/mm3 09/13/20 07:12 Lymphocytes # (Manual) 1.5 K/mm3 (1.2-5.4) 09/13/20 07:12 Abs React Lymphs (Man) 0.0 K/mm3 09/13/20 07:12 Monocytes # (Manual) 0.6 K/mm3 (0.0-0.8) 09/13/20 07:12 Eosinophils # (Manual) 0.0 K/mm3 (0.0-0.4) 09/13/20 07:12 Basophils # (Manual) 0.0 K/mm3 (0.0-0.1) 09/13/20 07:12 Metamyelocytes # 0.0 K/mm3 09/13/20 07:12 Myelocytes # 0.0 K/mm3 09/13/20 07:12 Promyelocytes # 0.0 K/mm3 09/13/20 07:12 Blast Cells # 0.0 K/mm3 09/13/20 07:12 WBC Morphology Not Reportable 09/13/20 07:12 Hypersegmented Neuts Not Reportable 09/13/20 07:12 Hyposegmented Neuts Not Reportable 09/13/20 07:12 Hypogranular Neuts Not Reportable 09/13/20 07:12 Smudge Cells Not Reportable 09/13/20 07:12 Toxic Granulation Not Reportable 09/13/20 07:12 Toxic Vacuolation Not Reportable 09/13/20 07:12 Dohle Bodies Not Reportable 09/13/20 07:12 Pelger-Huet Anomaly Not Reportable 09/13/20 07:12 Tracey Rods Not Reportable 09/13/20 07:12 Platelet Estimate Consistent w auto 09/13/20 07:12 Clumped Platelets Not Reportable 09/13/20 07:12 Plt Clumps, EDTA Not Reportable 09/13/20 07:12 Large Platelets Not Reportable 09/13/20 07:12 Giant Platelets Not Reportable 09/13/20 07:12 Platelet Satelliting Not Reportable 09/13/20 07:12 Plt Morphology Comment Not Reportable 09/13/20 07:12 RBC Morphology Normal 09/13/20 07:12 Dimorphic RBCs Not Reportable 09/13/20 07:12 Polychromasia Not Reportable 09/13/20 07:12 Hypochromasia Not Reportable 09/13/20 07:12 Poikilocytosis Not Reportable 09/13/20 07:12 Anisocytosis Not Reportable 09/13/20 07:12 Microcytosis Not Reportable 09/13/20 07:12 Macrocytosis Not Reportable 09/13/20 07:12 Spherocytes Not Reportable 09/13/20 07:12 Pappenheimer Bodies Not Reportable 09/13/20 07:12 Sickle Cells Not Reportable 09/13/20 07:12 Target Cells Not Reportable 09/13/20 07:12 Tear Drop Cells Not Reportable 09/13/20 07:12 Ovalocytes Not Reportable 09/13/20 07:12 Helmet Cells Not Reportable 09/13/20 07:12 [place] Bodies Not Reportable 09/13/20 07:12 Horatio Rings Not Reportable 09/13/20 07:12 Nelli Cells Not Reportable 09/13/20 07:12 Bite Cells Not Reportable 09/13/20 07:12 Crenated Cell Not Reportable 09/13/20 07:12 Elliptocytes Not Reportable 09/13/20 07:12 Acanthocytes (Spur) Not Reportable 09/13/20 07:12 Rouleaux Not Reportable 09/13/20 07:12 Hemoglobin C Crystals Not Reportable 09/13/20 07:12 Schistocytes Not Reportable 09/13/20 07:12 Malaria parasites Not Reportable 09/13/20 07:12 Dmitri Bodies Not Reportable 09/13/20 07:12 Hem Pathologist Commnt No 09/13/20 07:12 PT 14.3 Sec. (12.2-14.9) 09/12/20 14:21 INR 1.13 (0.87-1.13) 09/12/20 14:21 VBG pH 7.350 (7.320-7.420) 09/12/20 14:21 Sodium 136 mmol/L (137-145) L 09/17/20 05:58 Potassium 4.1 mmol/L (3.6-5.0) 09/17/20 05:58 Chloride 97.9 mmol/L (98-107) L 09/17/20 05:58 Carbon Dioxide 34 mmol/L (22-30) H 09/17/20 05:58 Anion Gap 8 mmol/L 09/17/20 05:58 BUN 18 mg/dL (7-17) H 09/17/20 05:58 Creatinine 0.5 mg/dL (0.6-1.2) L D 09/17/20 05:58 Estimated GFR > 60 ml/min 09/17/20 05:58 BUN/Creatinine Ratio 36 % 09/17/20 05:58 Glucose 89 mg/dL (65-100) 09/17/20 05:58 Hemoglobin A1c 5.8 % (4-6) 09/13/20 07:12 Lactic Acid 1.50 mmol/L (0.7-2.0) 09/12/20 17:08 Calcium 8.3 mg/dL (8.4-10.2) L 09/17/20 05:58 Magnesium 2.00 mg/dL (1.7-2.3) 09/12/20 14:21 Iron 24 ug/dL (37-170) L 09/12/20 17:08 TIBC 211 mcg/dL (250-450) L 09/12/20 17:08 Total Bilirubin 0.20 mg/dL (0.1-1.2) 09/13/20 07:12 Direct Bilirubin < 0.2 mg/dL (0-0.2) 09/12/20 14:21 Indirect Bilirubin 0.0 mg/dL 09/12/20 14:21 AST 15 units/L (5-40) 09/13/20 07:12 ALT < 5 units/L (7-56) L 09/13/20 07:12 Alkaline Phosphatase 40 units/L (35-129) 09/13/20 07:12 Total Creatine Kinase 22 units/L (30-135) L 09/12/20 14:21 CK-MB (CK-2) 1.4 ng/mL (0.0-4.0) 09/12/20 14:21 CK-MB (CK-2) Rel Index 6.3 (0-4) H 09/12/20 14:21 Troponin T < 0.010 ng/mL (0.00-0.029) 09/12/20 14:21 NT-Pro-B Natriuret Pep 744.4 pg/mL (0-900) 09/17/20 05:58 Total Protein 4.0 g/dL (6.3-8.2) L 09/13/20 07:12 Albumin 2.3 g/dL (3.9-5) L 09/13/20 07:12 Albumin/Globulin Ratio 1.4 % 09/13/20 07:12 Vitamin B12 593.2 pg/mL (211-911) 09/12/20 17:08 Folate 19.13 ng/mL (7.3-26.0) 09/12/20 17:08 Urine Color Vickie (Yellow) 09/12/20 16:46 Urine Turbidity Cloudy (Clear) 09/12/20 16:46 Urine pH 5.0 (5.0-7.0) 09/12/20 16:46 Ur Specific [place] 1.019 (1.003-1.030) 09/12/20 16:46 Urine Protein 30 mg/dl mg/dL (Negative) 09/12/20 16:46 Urine Glucose (UA) Neg mg/dL (Negative) 09/12/20 16:46 Urine Ketones Neg mg/dL (Negative) 09/12/20 16:46 Urine Blood Neg (Negative) 09/12/20 16:46 Urine Nitrite Neg (Negative) 09/12/20 16:46 Urine Bilirubin Neg (Negative) 09/12/20 16:46 Urine Urobilinogen < 2.0 mg/dL (<2.0) 09/12/20 16:46 Ur Leukocyte Esterase Mod (Negative) 09/12/20 16:46 Urine WBC (Auto) 90.0 /HPF (0.0-6.0) H 09/12/20 16:46 Urine RBC (Auto) 4.0 /HPF (0.0-6.0) 09/12/20 16:46 U Epithel Cells (Auto) < 1.0 /HPF (0-13.0) 09/12/20 16:46 Urine Mucus 1+ /HPF 09/12/20 16:46 Blood Type O POSITIVE 09/12/20 14:35 Antibody Screen Negative 09/12/20 14:35 Crossmatch See Detail 09/12/20 14:35 Microbiology: Microbiology 09/14/20 16:51 Stool Stool Occult Blood (FRIDA) - Final 09/12/20 14:21 Peripheral/Venous Blood Culture - Preliminary NO GROWTH AFTER 4 DAYS 09/12/20 14:21 Peripheral/Venous Blood Culture - Preliminary NO GROWTH AFTER 4 DAYS [place]/IV: Voiding Method External Female Catheter Active Medications - Current Medications Current Medications: Generic Name Dose Route Start Last Admin Trade Name Freq PRN Reason Stop Dose Admin Acetaminophen 650 mg 09/13/20 00:05 09/16/20 23:15 Acetaminophen 325 Mg Tab PO 650 mg Q4H PRN Administration Pain MILD(1-3)/Fever >100.5/IGNACIO Divalproex Sodium 1,500 mg 09/15/20 21:00 09/16/20 21:[address] 500 Mg Tab PO 1,500 mg QDAY@2100 TRISH Administration Escitalopram Oxalate 10 mg 09/14/20 11:00 09/16/20 09:29 Escitalopram 10 Mg Tab PO 10 mg DAILY TRISH Administration Famotidine 10 mg 09/15/20 22:00 09/16/20 21:30 Famotidine 10 Mg Tab PO 10 mg BID TRISH Administration Furosemide 40 mg 09/16/20 17:00 09/16/20 17:41 Furosemide 20 Mg/2 Ml Inj IV 40 mg QDAY TRISH Administration Hydromorphone HCl 0.5 mg 09/12/20 21:29 09/16/20 15:22 Hydromorphone 1 Mg/1 Ml Inj IV 0.5 mg Q3H PRN Administration Pain , Severe (7-10) Ceftriaxone Sodium 2 gm in 100 mls @ 200 mls/hr 09/13/20 10:00 09/16/20 09:27 Rocephin/Ns 2 Gm/100 Ml IV 09/19/20 10:29 200 mls/hr Q24HR TRISH Administration Protocol Memantine 5 mg 09/14/20 11:00 09/16/20 21:30 Memantine 5 Mg Tab PO 5 mg BID TRISH Administration Metoclopramide HCl 5 mg 09/13/20 00:17 Metoclopramide 10 Mg/2 Ml Inj IV Q6H PRN Nausea And Vomiting Multivitamins/Minerals 1 each 09/13/20 10:00 09/16/20 21:30 Calcium Carb/Vit D3/Minerals 600 Mg/800 Units Tab PO 1 each BID TRISH Administration Ondansetron HCl 4 mg 09/13/20 00:05 Ondansetron 4 Mg/2 Ml Inj IV Q8H PRN Nausea And Vomiting Oxycodone/Acetaminophen 1 tab 09/13/20 00:05 Oxycodone /Acetaminophen 5-325mg Tab PO Q6H PRN Pain, Moderate (4-6) Sodium Chloride 10 ml 09/13/20 10:00 09/16/20 21:30 Sodium Chloride 0.9% 10 Ml Flush Syringe IV 10 ml BID TRISH Administration Sodium Chloride 10 ml 09/13/20 00:05 Sodium Chloride 0.9% 10 Ml Flush Syringe IV PRN PRN LINE FLUSH Nutrition/Malnutrition Assess - Dietary Evaluation Nutrition/Malnutrition Findings: Nutrition Notes Start: 09/13/20 11:47 Freq: Status: Active Protocol: Document 09/16/20 12:42 (Rec: 09/16/20 12:44 [id number]) Nutrition Notes Initial or Follow up Brief Note Other Pertinent Diagnosis UTI, anemia, acute encephalopathy Current Diet Cardiac Labs/Tests Na 135 Pertinent Medications MVI Height 5 ft 3 in Weight 63.2 kg [place] Body Weight (kg) 52.27 BMI 24.7 Weight Status Appropriate Subjective/Other Information FU for intakes. Pt eating 50- 75% of meals and 100% of 2 ONS . Percent of energy/protein needs met: 100%/100% Burn Absent Trauma Absent GI Symptoms None Current % PO Fair (50-74%) Minimum of two criteria No physical signs of malnutrition #1 Nutrition Diagnosis No nutrition diagnosis at this time Is patient on ventilator? No Is Patient Ambulatory and/or Out of Bed No REE-([facility]-confined to bed) [phone] Calculation Used for Recommendations [facility] Additional Notes Protein: (1-1.2g/kg) 63-76g Fluid: 1ml/kcal or per MD Nutrition Intervention Change Diet Order: Continue Add Supplement/Snack (indicate name/kcal Ensure Enlive BID /protein ) Provides kCal: 700 Provides Protein (gm) 40 Goal #1 Meet at least 75% of protein and energy needs via PO and ONS intakes Anticipated Discharge Needs: Regular Follow-Up By: 09/23/20 Additional Comments FU for stable intakes
[2020-09-17] MEDS: ESCITALOPRAM 10 MG TAB PO SCH (09:25)
[2020-09-17] MEDS: CALCIUM CARB/VIT D3/MINERALS 600 MG/800 UNITS TAB PO SCH ×2 (09:25→21:47)
[2020-09-17] MEDS: cefTRIAXone/NS 2 GM/100 ML 2 GM/100 ML BAG IV SCH (09:25)
[2020-09-17] MEDS: FAMOTIDINE 10 MG TAB PO SCH ×2 (09:25→21:45)
[2020-09-17] MEDS: MEMANTINE 5 MG TAB PO SCH ×2 (09:26→21:45)
[2020-09-17] MEDS: FUROSEMIDE 20 MG/2 ML INJ IV SCH (09:26)
[2020-09-17] MEDS: DIVALPROEX DR 500 MG TAB PO SCH (21:45)
[2020-09-17] MEDS: oxyCODONE /ACETAMINOPHEN 5-325MG TAB PO PRN (21:51)
--- NOTE | 2020-09-18 08:35 | Discharge Summary ---
Providers - Providers Date of Admission: 09/12/20 17:55 Date of discharge: 09/20/20 Attending physician: EDWARD MIX 09/12/20 17:55 Physical Therapy Evaluation and Treat [CONS] Urgent Comment: Reason For Exam: Functional disability 09/13/20 07:12 Consult to Physician [CONS] Routine Comment: Consulting Provider: DARYA BAUTISTA Physician Instructions: Reason For Exam: Right hip hematoma Consult to Wound/ET Nurse [CONS] Routine Reason For Exam: wound eval 09/14/20 07:24 Occupational Therapy Evaluate and Treat [CONS] Routine Comment: Reason For Exam: debility 09/17/20 07:03 Speech Therapy Evaluation and Treat [CONS] Routine Reason For Exam: SWALLOW EVALUATION Primary care physician: DERMATOLOGY PROCEDURAL PHYSICIAN Hospitalization Reason for admission: UTI Condition: Stable Hospital course: 80-year-old female who presented through the emergency department with complaints of hip pain and altered sensorium. Patient was admitted with diagnosis of toxic metabolic encephalopathy secondary to hyponatremia and UTI. Patient was treated with IV fluid hydration with sodium repletion and IV ant ibiotics for UTI. Patient has significant improvement throughout hospitalization and return back to her baseline with her mental status. Patient continued to have hip pain. Therefore repeat CAT scan on 09/16 was completed which revealed a stable hematoma over the right hip and no fracture. Physical therapy evaluated the patient and recommended for subacute rehab. Case management was consulted and discharge planning was arranged and patient will be discharged to subacute rehab. Dedicated discharge time 35 minutes. Disposition: - TO HOME OR SELFCARE Final Discharge Diagnosis (Prints w/discharge instructions): toxic metabolic encephalopathy secondary to hyponatremia and UTI. Core Measure Documentation - Palliative Care Palliative Care/ Comfort Measures: Not Applicable - Core Measures Any of the following diagnoses?: none Exam - Constitutional Vitals: Temp Pulse Resp BP Pulse Ox 98.0 F 73 16 120/64 94 09/18/20 05:01 09/18/20 05:01 09/18/20 05:01 09/18/20 05:01 09/18/20 05:01 General appearance: Present: no acute distress, well-nourished - EENT Eyes: Present: PERRL ENT: hearing intact, clear oral mucosa - Neck Neck: Present: supple, normal ROM - Respiratory Respiratory effort: normal Respiratory: bilateral: CTA - Cardiovascular Heart Sounds: Present: S1 & S2. Absent: rub, click - Extremities Extremities: pulses symmetrical, No edema Peripheral Pulses: within normal limits - Abdominal General gastrointestinal: Present: soft, non-tender, non-distended, normal bowel sounds Female genitourinary: Present: normal - Integumentary Integumentary: Present: clear, warm, dry - Musculoskeletal Musculoskeletal: gait normal, strength equal bilaterally - Psychiatric Psychiatric: appropriate mood/affect, intact judgment & insight - Neurologic Neurologic: CNII-XII intact, moves all extremities Plan Activity: advance as tolerated Weight Bearing Status: Weight Bear as Tolerated Diet: regular Follow up with: PRIMARY CARE, [Primary Care Provider] - 3-5 Days
[2020-09-18] MEDS: FUROSEMIDE 20 MG/2 ML INJ IV SCH (11:16)
[2020-09-18] MEDS: FAMOTIDINE 10 MG TAB PO SCH ×2 (11:16→21:09)
[2020-09-18] MEDS: ESCITALOPRAM 10 MG TAB PO SCH (11:16)
[2020-09-18] MEDS: CALCIUM CARB/VIT D3/MINERALS 600 MG/800 UNITS TAB PO SCH ×2 (11:16→21:09)
[2020-09-18] MEDS: cefTRIAXone/NS 2 GM/100 ML 2 GM/100 ML BAG IV SCH (11:17)
[2020-09-18] MEDS: MEMANTINE 5 MG TAB PO SCH ×2 (11:17→21:11)
[2020-09-18] MEDS: oxyCODONE /ACETAMINOPHEN 5-325MG TAB PO PRN (17:45)
[2020-09-18] MEDS: DIVALPROEX DR 500 MG TAB PO SCH (21:09)
--- NOTE | 2020-09-19 09:06 | Progress Note ---
Assessment and Plan Assessment and plan: Metabolic encephalopathy Hyponatremia Right hip hematoma Acute blood loss anemia UTI Protein calorie malnutrition 09/17/2020. Repeat CAT scan on 09/16 reveals stable hematoma over the right hip. Beta natruretic peptide within normal range. Physical therapy recommends subacute rehab placement. 09/18/2020. Patient awaiting placement at subacute rehab. Patient is clinically stable. 09/19/2020. Patient awaiting placement at subacute rehab. Patient is clinically stable. Awaiting insurance authorization. History Interval history: No new issues overnight. Hospitalist Physical - Constitutional Vitals: Temp Pulse Resp BP Pulse Ox 99.3 F 85 15 121/63 91 09/19/20 06:09 09/19/20 06:09 09/19/20 06:09 09/19/20 06:09 09/19/20 06:09 General appearance: Present: no acute distress, well-nourished - EENT Eyes: Present: PERRL, EOM intact ENT: hearing intact, clear oral mucosa, dentition normal - Neck Neck: Present: supple, normal ROM - Respiratory Respiratory effort: normal Respiratory: bilateral: CTA - Cardiovascular Rhythm: regular Heart Sounds: Present: S1 & S2. Absent: gallop, rub - Extremities Extremities: no ischemia, No edema, Full ROM - Abdominal General gastrointestinal: soft, non-tender, non-distended, normal bowel sounds - Integumentary Integumentary: Present: clear, warm, dry - Neurologic Neurologic: CNII-XII intact, moves all extremities HEART Score - HEART Score Troponin: Troponin T < 0.010 ng/mL (0.00-0.029) 09/12/20 14:21 Results - Labs CBC & Chem 7: 09/17/20 05:58 09/17/20 05:58 Labs: Laboratory Last Values WBC 7.1 K/mm3 (4.5-11.0) 09/17/20 05:58 RBC 2.47 M/mm3 (3.65-5.03) L 09/17/20 05:58 Hgb 8.5 gm/dl (10.1-14.3) L 09/17/20 05:58 Hct 24.2 % (30.3-42.9) L 09/17/20 05:58 MCV 98 fl (79-97) H 09/17/20 05:58 MCH 34 pg (28-32) H 09/17/20 05:58 MCHC 35 % (30-34) H 09/17/20 05:58 RDW 14.7 % (13.2-15.2) 09/17/20 05:58 Plt Count 252 K/mm3 (140-440) 09/17/20 05:58 Lymph % (Auto) 19.0 % (13.4-35.0) 09/14/20 06:25 [place] % (Auto) 17.8 % (0.0-7.3) H 09/14/20 06:25 Eos % (Auto) 0.6 % (0.0-4.3) 09/14/20 06:25 Baso % (Auto) 0.1 % (0.0-1.8) 09/14/20 06:25 Lymph # (Auto) 1.1 K/mm3 (1.2-5.4) L 09/14/20 06:25 [place] # (Auto) 1.0 K/mm3 (0.0-0.8) H 09/14/20 06:25 Eos # (Auto) 0.0 K/mm3 (0.0-0.4) 09/14/20 06:25 Baso # (Auto) 0.0 K/mm3 (0.0-0.1) 09/14/20 06:25 Add Manual Diff Complete 09/13/20 07:12 Total Counted 100 09/13/20 07:12 Seg Neutrophils % 62.5 % (40.0-70.0) 09/14/20 06:25 Seg Neuts % (Manual) 61.0 % (40.0-70.0) 09/13/20 07:12 Band Neutrophils % 1.0 % 09/13/20 07:12 Lymphocytes % (Manual) 27.0 % (13.4-35.0) 09/13/20 07:12 Monocytes % (Manual) 11.0 % (0.0-7.3) H 09/13/20 07:12 Nucleated RBC % Not Reportable 09/13/20 07:12 Seg Neutrophils # 3.6 K/mm3 (1.8-7.7) 09/14/20 06:25 Seg Neutrophils # Man 3.5 K/mm3 (1.8-7.7) 09/13/20 07:12 Band Neutrophils # 0.1 K/mm3 09/13/20 07:12 Lymphocytes # (Manual) 1.5 K/mm3 (1.2-5.4) 09/13/20 07:12 Abs React Lymphs (Man) 0.0 K/mm3 09/13/20 07:12 Monocytes # (Manual) 0.6 K/mm3 (0.0-0.8) 09/13/20 07:12 Eosinophils # (Manual) 0.0 K/mm3 (0.0-0.4) 09/13/20 07:12 Basophils # (Manual) 0.0 K/mm3 (0.0-0.1) 09/13/20 07:12 Metamyelocytes # 0.0 K/mm3 09/13/20 07:12 Myelocytes # 0.0 K/mm3 09/13/20 07:12 Promyelocytes # 0.0 K/mm3 09/13/20 07:12 Blast Cells # 0.0 K/mm3 09/13/20 07:12 WBC Morphology Not Reportable 09/13/20 07:12 Hypersegmented Neuts Not Reportable 09/13/20 07:12 Hyposegmented Neuts Not Reportable 09/13/20 07:12 Hypogranular Neuts Not Reportable 09/13/20 07:12 Smudge Cells Not Reportable 09/13/20 07:12 Toxic Granulation Not Reportable 09/13/20 07:12 Toxic Vacuolation Not Reportable 09/13/20 07:12 Dohle Bodies Not Reportable 09/13/20 07:12 Pelger-Huet Anomaly Not Reportable 09/13/20 07:12 Tracey Rods Not Reportable 09/13/20 07:12 Platelet Estimate Consistent w auto 09/13/20 07:12 Clumped Platelets Not Reportable 09/13/20 07:12 Plt Clumps, EDTA Not Reportable 09/13/20 07:12 Large Platelets Not Reportable 09/13/20 07:12 Giant Platelets Not Reportable 09/13/20 07:12 Platelet Satelliting Not Reportable 09/13/20 07:12 Plt Morphology Comment Not Reportable 09/13/20 07:12 RBC Morphology Normal 09/13/20 07:12 Dimorphic RBCs Not Reportable 09/13/20 07:12 Polychromasia Not Reportable 09/13/20 07:12 Hypochromasia Not Reportable 09/13/20 07:12 Poikilocytosis Not Reportable 09/13/20 07:12 Anisocytosis Not Reportable 09/13/20 07:12 Microcytosis Not Reportable 09/13/20 07:12 Macrocytosis Not Reportable 09/13/20 07:12 Spherocytes Not Reportable 09/13/20 07:12 Pappenheimer Bodies Not Reportable 09/13/20 07:12 Sickle Cells Not Reportable 09/13/20 07:12 Target Cells Not Reportable 09/13/20 07:12 Tear Drop Cells Not Reportable 09/13/20 07:12 Ovalocytes Not Reportable 09/13/20 07:12 Helmet Cells Not Reportable 09/13/20 07:12 [place] Bodies Not Reportable 09/13/20 07:12 [place] Rings Not Reportable 09/13/20 07:12 [place] Cells Not Reportable 09/13/20 07:12 Bite Cells Not Reportable 09/13/20 07:12 Crenated Cell Not Reportable 09/13/20 07:12 Elliptocytes Not Reportable 09/13/20 07:12 Acanthocytes (Spur) Not Reportable 09/13/20 07:12 Rouleaux Not Reportable 09/13/20 07:12 Hemoglobin C Crystals Not Reportable 09/13/20 07:12 Schistocytes Not Reportable 09/13/20 07:12 Malaria parasites Not Reportable 09/13/20 07:12 Dmitri Bodies Not Reportable 09/13/20 07:12 Hem Pathologist Commnt No 09/13/20 07:12 PT 14.3 Sec. (12.2-14.9) 09/12/20 14:21 INR 1.13 (0.87-1.13) 09/12/20 14:21 VBG pH 7.350 (7.320-7.420) 09/12/20 14:21 Sodium 136 mmol/L (137-145) L 09/17/20 05:58 Potassium 4.1 mmol/L (3.6-5.0) 09/17/20 05:58 Chloride 97.9 mmol/L (98-107) L 09/17/20 05:58 Carbon Dioxide 34 mmol/L (22-30) H 09/17/20 05:58 Anion Gap 8 mmol/L 09/17/20 05:58 BUN 18 mg/dL (7-17) H 09/17/20 05:58 Creatinine 0.5 mg/dL (0.6-1.2) L D 09/17/20 05:58 Estimated GFR > 60 ml/min 09/17/20 05:58 BUN/Creatinine Ratio 36 % 09/17/20 05:58 Glucose 89 mg/dL (65-100) 09/17/20 05:58 Hemoglobin A1c 5.8 % (4-6) 09/13/20 07:12 Lactic Acid 1.50 mmol/L (0.7-2.0) 09/12/20 17:08 Calcium 8.3 mg/dL (8.4-10.2) L 09/17/20 05:58 Magnesium 2.00 mg/dL (1.7-2.3) 09/12/20 14:21 Iron 24 ug/dL (37-170) L 09/12/20 17:08 TIBC 211 mcg/dL (250-450) L 09/12/20 17:08 Total Bilirubin 0.20 mg/dL (0.1-1.2) 09/13/20 07:12 Direct Bilirubin < 0.2 mg/dL (0-0.2) 09/12/20 14:21 Indirect Bilirubin 0.0 mg/dL 09/12/20 14:21 AST 15 units/L (5-40) 09/13/20 07:12 ALT < 5 units/L (7-56) L 09/13/20 07:12 Alkaline Phosphatase 40 units/L (35-129) 09/13/20 07:12 Total Creatine Kinase 22 units/L (30-135) L 09/12/20 14:21 CK-MB (CK-2) 1.4 ng/mL (0.0-4.0) 09/12/20 14:21 CK-MB (CK-2) Rel Index 6.3 (0-4) H 09/12/20 14:21 Troponin T < 0.010 ng/mL (0.00-0.029) 09/12/20 14:21 NT-Pro-B Natriuret Pep 744.4 pg/mL (0-900) 09/17/20 05:58 Total Protein 4.0 g/dL (6.3-8.2) L 09/13/20 07:12 Albumin 2.3 g/dL (3.9-5) L 09/13/20 07:12 Albumin/Globulin Ratio 1.4 % 09/13/20 07:12 Vitamin B12 593.2 pg/mL (211-911) 09/12/20 17:08 Folate 19.13 ng/mL (7.3-26.0) 09/12/20 17:08 Urine Color Vickie (Yellow) 09/12/20 16:46 Urine Turbidity Cloudy (Clear) 09/12/20 16:46 Urine pH 5.0 (5.0-7.0) 09/12/20 16:46 Ur Specific [place] 1.019 (1.003-1.030) 09/12/20 16:46 Urine Protein 30 mg/dl mg/dL (Negative) 09/12/20 16:46 Urine Glucose (UA) Neg mg/dL (Negative) 09/12/20 16:46 Urine Ketones Neg mg/dL (Negative) 09/12/20 16:46 Urine Blood Neg (Negative) 09/12/20 16:46 Urine Nitrite Neg (Negative) 09/12/20 16:46 Urine Bilirubin Neg (Negative) 09/12/20 16:46 Urine Urobilinogen < 2.0 mg/dL (<2.0) 09/12/20 16:46 Ur Leukocyte Esterase Mod (Negative) 09/12/20 16:46 Urine WBC (Auto) 90.0 /HPF (0.0-6.0) H 09/12/20 16:46 Urine RBC (Auto) 4.0 /HPF (0.0-6.0) 09/12/20 16:46 U Epithel Cells (Auto) < 1.0 /HPF (0-13.0) 09/12/20 16:46 Urine Mucus 1+ /HPF 09/12/20 16:46 Coronavirus (PCR) Negative (Negative) 09/17/20 10:05 Blood Type O POSITIVE 09/12/20 14:35 Antibody Screen Negative 09/12/20 14:35 Crossmatch See Detail 09/12/20 14:35 Merritt/IV: Voiding Method External Female Catheter Active Medications - Current Medications Current Medications: Generic Name Dose Route Start Last Admin Trade Name Freq PRN Reason Stop Dose Admin Acetaminophen 650 mg 09/13/20 00:05 09/16/20 23:15 Acetaminophen 325 Mg Tab PO 650 mg Q4H PRN Administration Pain MILD(1-3)/Fever >100.5/IGNACIO Divalproex Sodium 1,500 mg 09/15/20 21:00 09/18/20 21:[address] 500 Mg Tab PO 1,500 mg QDAY@2100 TRISH Administration Escitalopram Oxalate 10 mg 09/14/20 11:00 09/18/20 11:16 Escitalopram 10 Mg Tab PO 10 mg DAILY TRISH Administration Famotidine 10 mg 09/15/20 22:00 09/18/20 21:09 Famotidine 10 Mg Tab PO 10 mg BID TRISH Administration Furosemide 40 mg 09/16/20 17:00 09/18/20 11:16 Furosemide 20 Mg/2 Ml Inj IV 40 mg QDAY TRISH Administration Hydromorphone HCl 0.5 mg 09/12/20 21:29 09/16/20 15:22 Hydromorphone 1 Mg/1 Ml Inj IV 0.5 mg Q3H PRN Administration Pain , Severe (7-10) Ceftriaxone Sodium 2 gm in 100 mls @ 200 mls/hr 09/13/20 10:00 09/18/20 11:17 Rocephin/Ns 2 Gm/100 Ml IV 09/19/20 10:29 200 mls/hr Q24HR TRISH Administration Protocol Memantine 5 mg 09/14/20 11:00 09/18/20 21:11 Memantine 5 Mg Tab PO 5 mg BID TRISH Administration Metoclopramide HCl 5 mg 09/13/20 00:17 Metoclopramide 10 Mg/2 Ml Inj IV Q6H PRN Nausea And Vomiting Multivitamins/Minerals 1 each 09/13/20 10:00 09/18/20 21:09 Calcium Carb/Vit D3/Minerals 600 Mg/800 Units Tab PO 1 each BID TRISH Administration Ondansetron HCl 4 mg 09/13/20 00:05 Ondansetron 4 Mg/2 Ml Inj IV Q8H PRN Nausea And Vomiting Oxycodone/Acetaminophen 1 tab 09/13/20 00:05 09/18/20 17:45 Oxycodone /Acetaminophen 5-325mg Tab PO 1 tab Q6H PRN Administration Pain, Moderate (4-6) Sodium Chloride 10 ml 09/13/20 10:00 09/18/20 21:10 Sodium Chloride 0.9% 10 Ml Flush Syringe IV 10 ml BID TRISH Administration Sodium Chloride 10 ml 09/13/20 00:05 Sodium Chloride 0.9% 10 Ml Flush Syringe IV PRN PRN LINE FLUSH Nutrition/Malnutrition Assess - Dietary Evaluation Nutrition/Malnutrition Findings: Nutrition Notes Start: 09/13/20 11:47 Freq: Status: Active Protocol: Document 09/16/20 12:42 (Rec: 09/16/20 12:44 [id number]) Nutrition Notes Initial or Follow up Brief Note Other Pertinent Diagnosis UTI, anemia, acute encephalopathy Current Diet Cardiac Labs/Tests Na 135 Pertinent Medications MVI Height 5 ft 3 in Weight 63.2 kg [place] Body Weight (kg) 52.27 BMI 24.7 Weight Status Appropriate Subjective/Other Information FU for intakes. Pt eating 50- 75% of meals and 100% of 2 ONS . Percent of energy/protein needs met: 100%/100% Burn Absent Trauma Absent GI Symptoms None Current % PO Fair (50-74%) Minimum of two criteria No physical signs of malnutrition #1 Nutrition Diagnosis No nutrition diagnosis at this time Is patient on ventilator? No Is Patient Ambulatory and/or Out of Bed No REE-([facility]-confined to bed) [phone] Calculation Used for Recommendations [facility] Additional Notes Protein: (1-1.2g/kg) 63-76g Fluid: 1ml/kcal or per MD Nutrition Intervention Change Diet Order: Continue Add Supplement/Snack (indicate name/kcal Ensure Enlive BID /protein ) Provides kCal: 700 Provides Protein (gm) 40 Goal #1 Meet at least 75% of protein and energy needs via PO and ONS intakes Anticipated Discharge Needs: Regular Follow-Up By: 09/23/20 Additional Comments FU for stable intakes
[2020-09-19] MEDS: cefTRIAXone/NS 2 GM/100 ML 2 GM/100 ML BAG IV SCH (10:00)
[2020-09-19] MEDS: FAMOTIDINE 10 MG TAB PO SCH ×2 (10:01→21:15)
[2020-09-19] MEDS: ESCITALOPRAM 10 MG TAB PO SCH (10:01)
[2020-09-19] MEDS: CALCIUM CARB/VIT D3/MINERALS 600 MG/800 UNITS TAB PO SCH ×2 (10:01→21:15)
[2020-09-19] MEDS: MEMANTINE 5 MG TAB PO SCH ×2 (10:01→21:15)
[2020-09-19] MEDS: FUROSEMIDE 20 MG/2 ML INJ IV SCH (10:01)
[2020-09-19] MEDS: DIVALPROEX DR 500 MG TAB PO SCH (21:15)
[2020-09-20 06:39] VITALS: BP 125/61
--- NOTE | 2020-09-20 09:18 | Progress Note ---
Assessment and Plan Assessment and plan: Metabolic encephalopathy Hyponatremia Right hip hematoma Acute blood loss anemia UTI Protein calorie malnutrition 09/17/2020. Repeat CAT scan on 09/16 reveals stable hematoma over the right hip. Beta natruretic peptide within normal range. Physical therapy recommends subacute rehab placement. 09/18/2020. Patient awaiting placement at subacute rehab. Patient is clinically stable. 09/19/2020. Patient awaiting placement at subacute rehab. Patient is clinically stable. Awaiting insurance authorization. 09/20/20. Patient awaiting placement at subacute rehab. Patient is clinically stable. Awaiting insurance authorization. History Interval history: No new issues overnight. Hospitalist Physical - Constitutional Vitals: Temp Pulse Resp BP Pulse Ox 99.2 F 73 16 125/61 91 09/20/20 06:08 09/20/20 06:08 09/20/20 06:08 09/20/20 06:08 09/20/20 06:08 General appearance: Present: no acute distress, well-nourished - EENT Eyes: Present: PERRL, EOM intact ENT: hearing intact, clear oral mucosa, dentition normal - Neck Neck: Present: supple, normal ROM - Respiratory Respiratory effort: normal Respiratory: bilateral: CTA - Cardiovascular Rhythm: regular Heart Sounds: Present: S1 & S2. Absent: gallop, rub - Extremities Extremities: no ischemia, No edema, Full ROM - Abdominal General gastrointestinal: soft, non-tender, non-distended, normal bowel sounds - Integumentary Integumentary: Present: clear, warm, dry - Neurologic Neurologic: CNII-XII intact, moves all extremities HEART Score - HEART Score Troponin: Troponin T < 0.010 ng/mL (0.00-0.029) 09/12/20 14:21 Results - Labs CBC & Chem 7: 09/17/20 05:58 09/17/20 05:58 Labs: Laboratory Last Values WBC 7.1 K/mm3 (4.5-11.0) 09/17/20 05:58 RBC 2.47 M/mm3 (3.65-5.03) L 09/17/20 05:58 Hgb 8.5 gm/dl (10.1-14.3) L 09/17/20 05:58 Hct 24.2 % (30.3-42.9) L 09/17/20 05:58 MCV 98 fl (79-97) H 09/17/20 05:58 MCH 34 pg (28-32) H 09/17/20 05:58 MCHC 35 % (30-34) H 09/17/20 05:58 RDW 14.7 % (13.2-15.2) 09/17/20 05:58 Plt Count 252 K/mm3 (140-440) 09/17/20 05:58 Lymph % (Auto) 19.0 % (13.4-35.0) 09/14/20 06:25 [place] % (Auto) 17.8 % (0.0-7.3) H 09/14/20 06:25 Eos % (Auto) 0.6 % (0.0-4.3) 09/14/20 06:25 Baso % (Auto) 0.1 % (0.0-1.8) 09/14/20 06:25 Lymph # (Auto) 1.1 K/mm3 (1.2-5.4) L 09/14/20 06:25 [place] # (Auto) 1.0 K/mm3 (0.0-0.8) H 09/14/20 06:25 Eos # (Auto) 0.0 K/mm3 (0.0-0.4) 09/14/20 06:25 Baso # (Auto) 0.0 K/mm3 (0.0-0.1) 09/14/20 06:25 Add Manual Diff Complete 09/13/20 07:12 Total Counted 100 09/13/20 07:12 Seg Neutrophils % 62.5 % (40.0-70.0) 09/14/20 06:25 Seg Neuts % (Manual) 61.0 % (40.0-70.0) 09/13/20 07:12 Band Neutrophils % 1.0 % 09/13/20 07:12 Lymphocytes % (Manual) 27.0 % (13.4-35.0) 09/13/20 07:12 Monocytes % (Manual) 11.0 % (0.0-7.3) H 09/13/20 07:12 Nucleated RBC % Not Reportable 09/13/20 07:12 Seg Neutrophils # 3.6 K/mm3 (1.8-7.7) 09/14/20 06:25 Seg Neutrophils # Man 3.5 K/mm3 (1.8-7.7) 09/13/20 07:12 Band Neutrophils # 0.1 K/mm3 09/13/20 07:12 Lymphocytes # (Manual) 1.5 K/mm3 (1.2-5.4) 09/13/20 07:12 Abs React Lymphs (Man) 0.0 K/mm3 09/13/20 07:12 Monocytes # (Manual) 0.6 K/mm3 (0.0-0.8) 09/13/20 07:12 Eosinophils # (Manual) 0.0 K/mm3 (0.0-0.4) 09/13/20 07:12 Basophils # (Manual) 0.0 K/mm3 (0.0-0.1) 09/13/20 07:12 Metamyelocytes # 0.0 K/mm3 09/13/20 07:12 Myelocytes # 0.0 K/mm3 09/13/20 07:12 Promyelocytes # 0.0 K/mm3 09/13/20 07:12 Blast Cells # 0.0 K/mm3 09/13/20 07:12 WBC Morphology Not Reportable 09/13/20 07:12 Hypersegmented Neuts Not Reportable 09/13/20 07:12 Hyposegmented Neuts Not Reportable 09/13/20 07:12 Hypogranular Neuts Not Reportable 09/13/20 07:12 Smudge Cells Not Reportable 09/13/20 07:12 Toxic Granulation Not Reportable 09/13/20 07:12 Toxic Vacuolation Not Reportable 09/13/20 07:12 Dohle Bodies Not Reportable 09/13/20 07:12 Pelger-Huet Anomaly Not Reportable 09/13/20 07:12 [place]acey Rods Not Reportable 09/13/20 07:12 Platelet Estimate Consistent w auto 09/13/20 07:12 Clumped Platelets Not Reportable 09/13/20 07:12 Plt Clumps, EDTA Not Reportable 09/13/20 07:12 Large Platelets Not Reportable 09/13/20 07:12 Giant Platelets Not Reportable 09/13/20 07:12 Platelet Satelliting Not Reportable 09/13/20 07:12 Plt Morphology Comment Not Reportable 09/13/20 07:12 RBC Morphology Normal 09/13/20 07:12 Dimorphic RBCs Not Reportable 09/13/20 07:12 Polychromasia Not Reportable 09/13/20 07:12 Hypochromasia Not Reportable 09/13/20 07:12 Poikilocytosis Not Reportable 09/13/20 07:12 Anisocytosis Not Reportable 09/13/20 07:12 Microcytosis Not Reportable 09/13/20 07:12 Macrocytosis Not Reportable 09/13/20 07:12 Spherocytes Not Reportable 09/13/20 07:12 Pappenheimer Bodies Not Reportable 09/13/20 07:12 Sickle Cells Not Reportable 09/13/20 07:12 Target Cells Not Reportable 09/13/20 07:12 Tear Drop Cells Not Reportable 09/13/20 07:12 Ovalocytes Not Reportable 09/13/20 07:12 Helmet Cells Not Reportable 09/13/20 07:12 [place] Bodies Not Reportable 09/13/20 07:12 [place] Rings Not Reportable 09/13/20 07:12 [place] Cells Not Reportable 09/13/20 07:12 Bite Cells Not Reportable 09/13/20 07:12 Crenated Cell Not Reportable 09/13/20 07:12 Elliptocytes Not Reportable 09/13/20 07:12 Acanthocytes (Spur) Not Reportable 09/13/20 07:12 Rouleaux Not Reportable 09/13/20 07:12 Hemoglobin C Crystals Not Reportable 09/13/20 07:12 Schistocytes Not Reportable 09/13/20 07:12 Malaria parasites Not Reportable 09/13/20 07:12 Dmitri Bodies Not Reportable 09/13/20 07:12 Hem Pathologist Commnt No 09/13/20 07:12 PT 14.3 Sec. (12.2-14.9) 09/12/20 14:21 INR 1.13 (0.87-1.13) 09/12/20 14:21 VBG pH 7.350 (7.320-7.420) 09/12/20 14:21 Sodium 136 mmol/L (137-145) L 09/17/20 05:58 Potassium 4.1 mmol/L (3.6-5.0) 09/17/20 05:58 Chloride 97.9 mmol/L (98-107) L 09/17/20 05:58 Carbon Dioxide 34 mmol/L (22-30) H 09/17/20 05:58 Anion Gap 8 mmol/L 09/17/20 05:58 BUN 18 mg/dL (7-17) H 09/17/20 05:58 Creatinine 0.5 mg/dL (0.6-1.2) L D 09/17/20 05:58 Estimated GFR > 60 ml/min 09/17/20 05:58 BUN/Creatinine Ratio 36 % 09/17/20 05:58 Glucose 89 mg/dL (65-100) 09/17/20 05:58 Hemoglobin A1c 5.8 % (4-6) 09/13/20 07:12 Lactic Acid 1.50 mmol/L (0.7-2.0) 09/12/20 17:08 Calcium 8.3 mg/dL (8.4-10.2) L 09/17/20 05:58 Magnesium 2.00 mg/dL (1.7-2.3) 09/12/20 14:21 Iron 24 ug/dL (37-170) L 09/12/20 17:08 TIBC 211 mcg/dL (250-450) L 09/12/20 17:08 Total Bilirubin 0.20 mg/dL (0.1-1.2) 09/13/20 07:12 Direct Bilirubin < 0.2 mg/dL (0-0.2) 09/12/20 14:21 Indirect Bilirubin 0.0 mg/dL 09/12/20 14:21 AST 15 units/L (5-40) 09/13/20 07:12 ALT < 5 units/L (7-56) L 09/13/20 07:12 Alkaline Phosphatase 40 units/L (35-129) 09/13/20 07:12 Total Creatine Kinase 22 units/L (30-135) L 09/12/20 14:21 CK-MB (CK-2) 1.4 ng/mL (0.0-4.0) 09/12/20 14:21 CK-MB (CK-2) Rel Index 6.3 (0-4) H 09/12/20 14:21 Troponin T < 0.010 ng/mL (0.00-0.029) 09/12/20 14:21 NT-Pro-B Natriuret Pep 744.4 pg/mL (0-900) 09/17/20 05:58 Total Protein 4.0 g/dL (6.3-8.2) L 09/13/20 07:12 Albumin 2.3 g/dL (3.9-5) L 09/13/20 07:12 Albumin/Globulin Ratio 1.4 % 09/13/20 07:12 Vitamin B12 593.2 pg/mL (211-911) 09/12/20 17:08 Folate 19.13 ng/mL (7.3-26.0) 09/12/20 17:08 Urine Color Vickie (Yellow) 09/12/20 16:46 Urine Turbidity Cloudy (Clear) 09/12/20 16:46 Urine pH 5.0 (5.0-7.0) 09/12/20 16:46 Ur Specific [place] 1.019 (1.003-1.030) 09/12/20 16:46 Urine Protein 30 mg/dl mg/dL (Negative) 09/12/20 16:46 Urine Glucose (UA) Neg mg/dL (Negative) 09/12/20 16:46 Urine Ketones Neg mg/dL (Negative) 09/12/20 16:46 Urine Blood Neg (Negative) 09/12/20 16:46 Urine Nitrite Neg (Negative) 09/12/20 16:46 Urine Bilirubin Neg (Negative) 09/12/20 16:46 Urine Urobilinogen < 2.0 mg/dL (<2.0) 09/12/20 16:46 Ur Leukocyte Esterase Mod (Negative) 09/12/20 16:46 Urine WBC (Auto) 90.0 /HPF (0.0-6.0) H 09/12/20 16:46 Urine RBC (Auto) 4.0 /HPF (0.0-6.0) 09/12/20 16:46 U Epithel Cells (Auto) < 1.0 /HPF (0-13.0) 09/12/20 16:46 Urine Mucus 1+ /HPF 09/12/20 16:46 Coronavirus (PCR) Negative (Negative) 09/17/20 10:05 Blood Type O POSITIVE 09/12/20 14:35 Antibody Screen Negative 09/12/20 14:35 Crossmatch See Detail 09/12/20 14:35 Merritt/IV: Voiding Method External Female Catheter Active Medications - Current Medications Current Medications: Generic Name Dose Route Start Last Admin Trade Name Freq PRN Reason Stop Dose Admin Acetaminophen 650 mg 09/13/20 00:05 09/16/20 23:15 Acetaminophen 325 Mg Tab PO 650 mg Q4H PRN Administration Pain MILD(1-3)/Fever >100.5/IGNACIO Divalproex Sodium 1,500 mg 09/15/20 21:00 09/19/20 21:[address] 500 Mg Tab PO 1,500 mg QDAY@2100 TRISH Administration Escitalopram Oxalate 10 mg 09/14/20 11:00 09/19/20 10:01 Escitalopram 10 Mg Tab PO 10 mg DAILY TRISH Administration Famotidine 10 mg 09/15/20 22:00 09/19/20 21:15 Famotidine 10 Mg Tab PO 10 mg BID TRISH Administration Hydromorphone HCl 0.5 mg 09/12/20 21:29 09/16/20 15:22 Hydromorphone 1 Mg/1 Ml Inj IV 0.5 mg Q3H PRN Administration Pain , Severe (7-10) Memantine 5 mg 09/14/20 11:00 09/19/20 21:15 Memantine 5 Mg Tab PO 5 mg BID TRISH Administration Metoclopramide HCl 5 mg 09/13/20 00:17 Metoclopramide 10 Mg/2 Ml Inj IV Q6H PRN Nausea And Vomiting Multivitamins/Minerals 1 each 09/13/20 10:00 09/19/20 21:15 Calcium Carb/Vit D3/Minerals 600 Mg/800 Units Tab PO 1 each BID TRISH Administration Ondansetron HCl 4 mg 09/13/20 00:05 Ondansetron 4 Mg/2 Ml Inj IV Q8H PRN Nausea And Vomiting Oxycodone/Acetaminophen 1 tab 09/13/20 00:05 09/18/20 17:45 Oxycodone /Acetaminophen 5-325mg Tab PO 1 tab Q6H PRN Administration Pain, Moderate (4-6) Sodium Chloride 10 ml 09/13/20 10:00 09/19/20 21:15 Sodium Chloride 0.9% 10 Ml Flush Syringe IV 10 ml BID TRISH Administration Sodium Chloride 10 ml 09/13/20 00:05 Sodium Chloride 0.9% 10 Ml Flush Syringe IV PRN PRN LINE FLUSH Nutrition/Malnutrition Assess - Dietary Evaluation Nutrition/Malnutrition Findings: Nutrition Notes Start: 09/13/20 11:47 Freq: Status: Active Protocol: Document 09/16/20 12:42 MK (Rec: 09/16/20 12:44 MK [id number]) Nutrition Notes Initial or Follow up Brief Note Other Pertinent Diagnosis UTI, anemia, acute encephalopathy Current Diet Cardiac Labs/Tests Na 135 Pertinent Medications MVI Height 5 ft 3 in Weight 63.2 kg [place] Body Weight (kg) 52.27 BMI 24.7 Weight Status Appropriate Subjective/Other Information FU for intakes. Pt eating 50- 75% of meals and 100% of 2 ONS . Percent of energy/protein needs met: 100%/100% Burn Absent Trauma Absent GI Symptoms None Current % PO Fair (50-74%) Minimum of two criteria No physical signs of malnutrition #1 Nutrition Diagnosis No nutrition diagnosis at this time Is patient on ventilator? No Is Patient Ambulatory and/or Out of Bed No REE-([place]-[facility]-confined to bed) [phone] Calculation [facility] Additional Notes Protein: (1-1.2g/kg) 63-76g Fluid: 1ml/kcal or per MD Nutrition Intervention Change Diet Order: Continue Add Supplement/Snack (indicate name/kcal Ensure Enlive BID /protein ) Provides kCal: 700 Provides Protein (gm) 40 Goal #1 Meet at least 75% of protein and energy needs via PO and ONS intakes Anticipated Discharge Needs: Regular Follow-Up By: 09/23/20 Additional Comments FU for stable intakes
[2020-09-20] MEDS: FAMOTIDINE 10 MG TAB PO SCH (09:20)
[2020-09-20] MEDS: CALCIUM CARB/VIT D3/MINERALS 600 MG/800 UNITS TAB PO SCH (09:20)
[2020-09-20] MEDS: ESCITALOPRAM 10 MG TAB PO SCH (09:20)
[2020-09-20] MEDS: MEMANTINE 5 MG TAB PO SCH (09:21)
== END 2020-09-20 21:30 | DRG 640 ==
LOC: ED 13:04 → 3A 17:55
PROVIDERS: ADMIT Internal Medicine; ATTEND Hospitalist
PROC: 30233N1 Transfusion of Nonautologous Red Blood Cells into Peripheral Vein, Percutaneous Approach (ICD-10-PCS; principal; 2020-09-14)
DX: E87.1 Hypo-osmolality and hyponatremia (principal); G92 Toxic encephalopathy; E44.1 Mild protein-calorie malnutrition; D62 Acute posthemorrhagic anemia; N30.00 Acute cystitis without hematuria; E86.9 Volume depletion, unspecified; S70.01XA Contusion of right hip, initial encounter; Z20.822 Contact with and (suspected) exposure to COVID-19; E86.0 Dehydration; E83.51 Hypocalcemia; Z68.27 Body mass index [BMI] 27.0-27.9, adult; Z82.49 Family history of ischemic heart disease and other diseases of the circulatory system; Y93.89 Activity, other specified; Y92.89 Other specified places as the place of occurrence of the external cause; Y99.8 Other external cause status
CPT/HCPCS: 36415; 70450; 71045; 72170; 74176; 80048; 80053; 80076; 81001; 82140; 82270; 82550; 82553; 82607; 82747; 82805; 83036; 83550; 83735; 83880; 84484; 85007; 85025; 85027; 85610; 86850; 86900; 86901; 86920; 87040; 87086; 93306; G0378; J0696; J1170; J1940; J7030; J7040; P9016; U0003